=== PATIENT | male | born 1975 | race African-American/Black ===

== ENCOUNTER 2016-04-26 17:17 | Emergency (ER) | payer SELFPAY ==
--- NOTE | 2016-04-26 17:31 | ER Document Report ---
ED Medical Screen (RME) - General Stated Complaint: ABDOMINAL PAIN Mode of Arrival: Ambulatory Information source: Patient Notes: Patient complains of epigastric pain that started yesterday that radiates to his back. Patient denies any nausea or vomiting. Patient does complain of cough and shortness of breath. Patient states he took aspirin at home prior to arrival. Patient ran out of his blood pressure medication. hx: Hypertension, GERD I have greeted and performed a rapid initial assessment of this patient. A comprehensive ED assessment and evaluation of the patient, analysis of test results and completion of the medical decision making process will be conducted by additional ED providers. TRAVEL OUTSIDE OF THE [place] IN LAST 30 DAYS: No - Related Data Allergies/Adverse Reactions: hydrocodone bitartrate [From Vicodin] Allergy (Mild, Verified 04/26/16 17:30) Hives Past Medical History - Past Medical History Cardiac Medical History: Reports: Hx Hypertension Denies: Hx Coronary Artery Disease, Hx Heart Attack Pulmonary Medical History: Reports: Hx Asthma Denies: Hx Bronchitis, Hx COPD, Hx Pneumonia Neurological Medical History: Denies: Hx Cerebrovascular Accident, Hx Seizures Musculoskeltal Medical History: Denies Hx Arthritis - Immunizations Hx Diphtheria, Pertussis, Tetanus Vaccination: Yes Physical Exam - Abdominal Tenderness: Tender - Epigastric
[2016-04-26 18:41] LABS: ABSOLUTE EOSINOPHILS # (AUTO) 0.2 10^3/uL (0.0-0.6); ABSOLUTE LYMPHOCYTES (AUTO) 1.3 10^3/uL (0.5-4.7); ABSOLUTE MONOCYTES (AUTO) 0.4 10^3/uL (0.1-1.4); ABSOLUTE NEUT (AUTO) 2.4 10^3/uL (1.7-8.2); BASOPHILS % (AUTO) 1.1 % (0-2); EOSINOPHILS % (AUTO) 4.2 % (0-6); HEMATOCRIT 42.7 % (37.9-51.0); HEMOGLOBIN 14.2 g/dL (13.5-17.0); HGB HCT DIFFERENCE -0.1; LYMPHOCYTES % (AUTO) 30.2 % (13-45); MEAN CORPUSCULAR HEMOGLOBIN 29.6 pg (27.0-33.4); MEAN CORPUSCULAR HGB CONC 33.2 g/dL (32.0-36.0); MEAN CORPUSCULAR VOLUME 89 fl (80-97); MONOCYTES % (AUTO) 10.1 % (3-13); RED BLOOD COUNT 4.79 10^6/uL (4.35-5.55); RED CELL DISTRIBUTION WIDTH 12.5 % (11.5-14.0); SEGMENTED NEUTROPHILS % (AUTO) 54.4 % (42-78); WHITE BLOOD COUNT 4.4 10^3/uL (4.0-10.5)
--- NOTE | 2016-04-26 18:43 | EKG REPORT ---
SEVERITY:- ABNORMAL ECG - SINUS RHYTHM LVH WITH SECONDARY REPOLARIZATION ABNORMALITY : Confirmed by: Charleen Ortiz 26-Apr-2016 18:42:43
[2016-04-26 19:00] LABS: ALANINE AMINOTRANSFERASE 45 U/L (21-72); ALBUMIN 4.5 g/dL (3.5-5.0); ALKALINE PHOSPHATASE 81 U/L (38-126); ANION GAP 11 (5-19); ASPARTATE AMINO TRANSFERASE 19 U/L (17-59); BILIRUBIN,TOTAL 1.1 mg/dL (0.2-1.3); BLOOD UREA NITROGEN 13 mg/dL (7-20); CALCIUM 8.9 mg/dL (8.4-10.2); CARBON DIOXIDE 29 mmol/L (22-30); CHLORIDE 103 mmol/L (98-107); CREATINE KINASE 105 U/L (55-170); CREATININE RESULT 0.98 mg/dL (0.52-1.25); GLUCOSE 80 mg/dL (75-110); LIPASE 103.4 U/L (23-300); MAGNESIUM 1.7 mg/dL (1.6-2.3); POTASSIUM 3.8 mmol/L (3.6-5.0); SODIUM 142.8 mmol/L (137-145); TOTAL PROTEIN 6.8 g/dL (6.3-8.2)
[2016-04-26 19:12] LABS: CREATINE KINASE MB 0.27 ng/mL (<4.55)
[2016-04-26 19:14] LABS: TROPONIN I < 0.012 ng/mL
[2016-04-26 19:23] LABS: APPEARANCE,URINE CLEAR; BILIRUBIN,URINE NEGATIVE (NEGATIVE); GLUCOSE, URINE NEGATIVE (NEGATIVE); KETONES,URINE NEGATIVE (NEGATIVE); LEUKOCYTE ESTERASE,URINE NEGATIVE (NEGATIVE); NITRITE,URINE NEGATIVE (NEGATIVE); PROTEIN,URINE NEGATIVE (NEGATIVE); URINE SPECIFIC GRAVITY 1.018; UROBILINOGEN,URINE NEGATIVE mg/dL (<2.0)
[2016-04-26] MEDS ORDERED: KETOROLAC TROMETHAMINE INJ/PF 30 MG/1 ML SDV IM ONE (21:01)
--- NOTE | 2016-04-26 21:02 | ER Document Report ---
ED General - General Chief Complaint: Epigastric Pain Stated Complaint: ABDOMINAL PAIN Mode of Arrival: Ambulatory Notes: Patient is a 41-year-old male without past medical history, no prior surgical history who presents with 24 hours of epigastric abdominal pain. Does described as a dull, throbbing, aching pain. Nothing improves or worsens the pain. States that he is had anorexia but has not had any vomiting. States he had 2 diarrheal bowel movements today but has not passed any flatus. He has been able to tolerate sips of water but nothing more. No history of similar symptoms in the past. His symptoms of and unchanged since onset. He has not seen his primary care physician regarding today's concerns. TRAVEL OUTSIDE OF THE [place] IN LAST 30 DAYS: No - Related Data Allergies/Adverse Reactions: hydrocodone bitartrate [From Vicodin] Allergy (Mild, Verified 04/26/16 17:30) Hives Past Medical History - General Information source: Patient - Social History Smoking Status: Current Every Day Smoker Chew tobacco use (# tins/day): No Frequency of alcohol use: None Drug Abuse: None Lives with: Spouse/Significant other Family History: Reviewed & Not Pertinent Patient has suicidal ideation: No Patient has homicidal ideation: No - Past Medical History Cardiac Medical History: Reports: Hx Hypertension Denies: Hx Coronary Artery Disease, Hx Heart Attack Pulmonary Medical History: Reports: Hx Asthma Denies: Hx Bronchitis, Hx COPD, Hx Pneumonia Neurological Medical History: Denies: Hx Cerebrovascular Accident, Hx Seizures Renal/ Medical History: Denies: Hx Peritoneal Dialysis Musculoskeltal Medical History: Denies Hx Arthritis - Immunizations Hx Diphtheria, Pertussis, Tetanus Vaccination: Yes Review of Systems - Review of Systems Notes: Constitutional: Negative for fever. HENT: Negative for sore throat. Eyes: Negative for visual changes. Cardiovascular: Negative for chest pain. Respiratory: Negative for shortness of breath. Gastrointestinal: Positive for abdominal pain and diarrhea. Genitourinary: Negative for dysuria. Musculoskeletal: Negative for back pain. Skin: Negative for rash. Neurological: Negative for headaches, weakness or numbness. 10 point ROS negative except as marked above and in HPI. Physical Exam - Vital signs Vitals: Temp Pulse Resp BP Pulse Ox 98.7 F 82 16 170/118 H 98 04/26/16 17:30 04/26/16 17:30 04/26/16 17:30 04/26/16 17:30 04/26/16 17:30 Notes: PHYSICAL EXAMINATION: GENERAL: Well-appearing, well-nourished and in no acute distress. HEAD: Atraumatic, normocephalic. EYES: Pupils equal round and reactive to light, extraocular movements intact, sclera anicteric, conjunctiva are normal. ENT: nares patent, oropharynx clear without exudates. Moist mucous membranes. NECK: Normal range of motion, supple without lymphadenopathy LUNGS: Breath sounds clear to auscultation bilaterally and equal. No wheezes rales or rhonchi. HEART: Regular rate and rhythm without murmurs ABDOMEN: Soft, epigastric and right upper quadrant tenderness to palpation. Negative Martines sign., normoactive bowel sounds. No guarding, no rebound. No masses appreciated. EXTREMITIES: Normal range of motion, no pitting or edema. No cyanosis. NEUROLOGICAL: No focal neurological deficits. Moves all extremities spontaneously and on command. PSYCH: Normal mood, normal affect. SKIN: Warm, Dry, normal turgor, no rashes or lesions noted. Course - Re-evaluation Re-evalutation: 04/26/16 21:02 Patient presents with epigastric abdominal pain with associated reflux symptoms most consistent with likely gastritis. Patient has no focal abdominal tenderness on examination. Right upper quadrant ultrasound does not demonstrate any evidence of acute cholecystitis or cholelithiasis. Lipase is normal. No LFT changes. Based on history and exam, I do not suspect ACS, pulmonary embolus, SBO, mesenteric ischemia, acute pancreatitis, biliary pathology, or an abdominal aortic dissection. Patient has had improvement of symptoms here with a GI cocktail. At this time will discharge with return precautions and follow-up recommendations. Verbal discharge instructions given a the bedside and opportunity for questions given. Medication warnings reviewed. Patient is in agreement with this plan and has verbalized understanding of return precautions and the need for primary care follow-up in the next 24-72 hours. - Vital Signs Vital signs: Temp Pulse Resp BP Pulse Ox 97.8 F 78 16 171/122 H 97 04/27/16 00:20 04/27/16 00:20 04/27/16 00:20 04/27/16 00:20 04/27/16 00:20 - Laboratory Result Diagrams: 04/26/16 18:14 04/26/16 18:14 Laboratory results interpreted by me: 04/26/16 19:05 Urine Blood SMALL H - Diagnostic Test Radiology reviewed: Reports reviewed - EKG Interpretation by Me Additional EKG results interpreted by me: 04/27/16 04:00 Normal sinus rhythm. Rate 75. No ST elevations or depressions. LVH. QTC is 420. Discharge - Discharge Clinical Impression: Epigastric abdominal pain, Essential hypertension Condition: Good Disposition: HOME, SELF-CARE Additional Instructions: You have been seen in the Emergency Department (ED) for abdominal pain. Your evaluation did not identify a clear cause of your symptoms but was generally reassuring. Start taking famotidine which can purchase [id number]. Take 40 mg in the morning and 40 mg at night Please follow up with your doctor as soon as possible regarding today's emergent visit and the symptoms that are bothering you. Return to the ED if your abdominal pain worsens or fails to improve, you develop bloody vomiting, bloody diarrhea, you are unable to tolerate fluids due to vomiting, fever greater than 101, or other symptoms that concern you. Prescriptions: Lisinopril/Hydrochlorothiazide [Lisinopril-Hctz 20-25 mg Tab] 1 each PO DAILY # 30 tablet
[2016-04-26] MEDS ORDERED: MAG HYDROX/AL HYDROX/SIMETH SUSP 30 ML UDCUP PO ONE (23:20)
[2016-04-26] MEDS ORDERED: LIDOCAINE 2% VISCOUS SOLN 20 ML UDCUP PO ONE (23:20)
[2016-04-26] MEDS ORDERED: METOCLOPRAMIDE HCL ORAL SOLN 10 MG/10 ML UDCUP PO ONE (23:20)
[2016-04-27] MEDS ORDERED: LISINOPRIL 10 MG TABLET PO ONE (00:29)
[2016-04-27 00:33] VITALS: BP 171/122
== END 2016-04-27 00:30 | disposition home or self-care (01) ==
LOC: ER 17:17
DX: R10.13 Epigastric pain (principal); I10 Essential (primary) hypertension; F17.200 Nicotine dependence, unspecified, uncomplicated; Z88.6 Allergy status to analgesic agent
CPT/HCPCS: 93005; 99284; 96372; 36415; 82553; 82550; 83690; 83735; 85025; 80053; 81001; 84484; 71020; 74000; 76705; 93010; J1885

== ENCOUNTER 2018-04-08 11:13 | Emergency (ER) | payer SELFPAY ==
[2018-04-08] MEDS ORDERED: ACETAMINOPHEN 325 MG TABLET PO ONE (11:41)
[2018-04-08] MEDS ORDERED: LISINOPRIL 10 MG TABLET PO ONE (11:41)
[2018-04-08] MEDS ORDERED: HYDROCHLOROTHIAZIDE 25 MG TABLET PO ONE (11:41)
[2018-04-08 11:42] VITALS: BP 177/123
--- NOTE | 2018-04-08 11:56 | ER Document Report ---
HPI - HPI Time Seen by Provider: 04/08/18 11:33 Pain Level: 4 Notes: Patient is a 43-year-old male who presents to the ED complaining of nasal congestion/discharge, dry nonproductive cough, fever, body ache 2 days. Patient states that He is still eating and drinking without difficulties, but does have a decreased p.o. intake. He is still urinating normally having normal bowel movements. Patient has been using some [id number] meds for symptoms. He denies any significant past medical history including cardiopulmonary history and immunocompromised conditions aside from asthma. Patient denies any smoking or IV drug use. Patient requesting work note. D enies any current headache, neck pain, sore throat, chest pain, palpitations, syncope, shortness of breath, wheeze, dyspnea, abdominal pain, nausea/vomiting/diarrhea, urinary retention, dysuria, hematuria, or rash. - ROS Systems Reviewed and Negative: Yes All other systems reviewed and negative - CONSTITUTIONAL Constitutional: REPORTS: Fever, Chills - EENT EENT: REPORTS: Sore Throat - CARDIOVASCULAR Cardiovascular: REPORTS: Chest pain - RESPIRATORY Respiratory: REPORTS: Coughing Past Medical History - Social History Smoking Status: Never Smoker Chew tobacco use (# tins/day): No Frequency of alcohol use: None Drug Abuse: None Family History: Reviewed & Not Pertinent Patient has suicidal ideation: No Patient has homicidal ideation: No - Past Medical History Cardiac Medical History: Reports: Hx Hypertension Denies: Hx Coronary Artery Disease, Hx Heart Attack Pulmonary Medical History: Reports: Hx Asthma Denies: Hx Bronchitis, Hx COPD, Hx Pneumonia Neurological Medical History: Denies: Hx Cerebrovascular Accident, Hx Seizures Renal/ Medical History: Denies: Hx Peritoneal Dialysis Musculoskeletal Medical History: Denies Hx Arthritis Past Surgical History: Reports: Hx Oral Surgery - [place] teeth - Immunizations Hx Diphtheria, Pertussis, Tetanus Vaccination: Yes Vertical Provider Document - CONSTITUTIONAL Agree With Documented VS: Yes Notes: PHYSICAL EXAMINATION: GENERAL: Well-appearing, well-nourished and in no acute distress. A&Ox4. Answers questions appropriately. Moves comfortably w/o notable distress HEAD: Atraumatic, normocephalic. EYES: Pupils equal round and reactive to light, extraocular movements intact, sclera anicteric, conjunctiva are normal. ENT: EAC clear b/l. TM's intact b/l without erythema, fluid, or perforation. Nares patent and with clear discharge. oropharynx no erythema without exudates. No tonsilar hypertrophy without erythema or exudate. No palatine shift. Uvula midline. No tongue protrusion. No drooling, hoarseness, or airway compromise. Moist mucous membranes. No sinus tenderness. NECK: Normal range of motion, supple without lymphadenopathy. No rigidity/meningismus. LUNGS: Breath sounds clear to auscultation bilaterally and equal. No wheezes rales or rhonchi. No retractions HEART: Regular rate and rhythm without murmurs, rubs, gallops. ABDOMEN: Soft, nontender, nondistended abdomen. No guarding, no rebound. No masses appreciated. Normal bowel sounds present. No CVA tenderness bilaterally. No hepatosplenomegaly. NEUROLOGICAL: Normal speech, normal gait. Normal sensory, motor exams PSYCH: Normal mood, normal affect. SKIN: Warm, Dry, normal turgor, no rashes or lesions noted. - INFECTION CONTROL TRAVEL OUTSIDE OF THE [place] IN LAST 30 DAYS: No Course - Re-evaluation Re-evalutation: 04/08/18 11:57 Patient is an afebrile, well-hydrated, 43-year-old male who presents to the ED with acute URI, suspect influenza. Vitals are acceptable. PE is otherwise unremarkable. No labs or imaging warranted at this time based on H&P. Patient has no significant cardiopulmonary or immunocompromised medical conditions aside from asthma. Patient's lungs are clear to auscultation bilaterally without tachycardia, hypoxia, or tachypnea. Patient is tolerating p.o. without any difficulties. Thoroughly reviewed the risks, benefits, potential side effects, estimated cost without insurance with patient. After thorough review, patient declined Tamiflu at this time. Low suspicion for any meningitis, sepsis, peritonsillar/pharyngeal abscess, respiratory compromise, severe dehydration, or other emergent systemic condition at this time. Patient is aware this condition can change from initial presentation and he needs to monitor symptoms closely. I will send him home with a prescription for an inhaler. Patient was given his blood pressure medicine since he did not take it today and he was given tylenol. Conservative measures otherwise for symptoms. Recheck with your PCM in 3-5 days. Return to the ED with any worsening/concerning symptoms otherwise as reviewed in discharge. Patient is in agreement. - Vital Signs Vital signs: Temp Pulse Resp BP Pulse Ox 100.8 F H 101 H 20 177/123 H 96 04/08/18 11:41 04/08/18 11:41 04/08/18 11:41 04/08/18 11:41 04/08/18 11:41 Discharge - Discharge Clinical Impression: Acute URI Condition: Stable Disposition: HOME, SELF-CARE Additional Instructions: Maintain adequate fluid intake Take meds as directed tylenol/ibuprofen as needed over the counter cold medication as needed for symptoms Humidified air may help Wash your hands regularly Wear a mask when coughing F/u: with your PCM in 3-5 days for a recheck Return to the ED with any fever, worsening pain, chest pain, palpitations, syncope, worsening KOCH, neck pain/stiffness, shortness of breath, wheezing, drooling, trouble swallowing/breathing, abdominal pain, n/v/d, rash, or worsening/concerning symptoms otherwise. Forms: Elevated Blood Pressure Referrals: [facility] / [facility] [Provider Group] - Follow up as needed
[2018-04-08] MEDS ORDERED: ALBUTEROL SULFATE HFA (90 MCG/PUFF) 8 GM MDI (1 MDI/ER DISP) IH ONE (11:58)
== END 2018-04-08 12:26 | disposition home or self-care (01) ==
LOC: ER 11:13
DX: R09.81 Nasal congestion (principal); J06.9 Acute upper respiratory infection, unspecified; R05 Cough; R50.9 Fever, unspecified; R07.9 Chest pain, unspecified; J02.9 Acute pharyngitis, unspecified; J45.909 Unspecified asthma, uncomplicated; I10 Essential (primary) hypertension
CPT/HCPCS: 99283; J3490

== ENCOUNTER 2018-09-04 12:32 | Emergency (ER) | payer OTHER ==
[2018-09-04] MEDS ORDERED: DEXAMETHASONE SOD PHOS INJ 10 MG/1 ML VIAL IM ONE (14:43)
[2018-09-04] MEDS ORDERED: LIDOCAINE 5% (700 MG) TRANSDERMAL ADH..PATCH TP ONE (14:43)
[2018-09-04] MEDS ORDERED: KETOROLAC TROMETHAMINE 60 MG/2 ML SDV IM ONE (14:43)
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
[2018-09-04 16:40] VITALS: BP 190/92
== END 2018-09-04 16:40 | disposition home or self-care (01) ==
LOC: ER 12:32
DX: M51.36 Other intervertebral disc degeneration, lumbar region (principal); M54.9 Dorsalgia, unspecified; G89.29 Other chronic pain; M54.5 Low back pain; M79.605 Pain in left leg; V87.7XXA Person injured in collision between other specified motor vehicles (traffic), initial encounter; F17.210 Nicotine dependence, cigarettes, uncomplicated; I10 Essential (primary) hypertension; J45.909 Unspecified asthma, uncomplicated
CPT/HCPCS: 99406; 99283; 96372; 72110; 72070; J1885; J1100

== ENCOUNTER 2018-10-15 19:02 | Emergency (ER) | payer OTHER ==
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
[2018-10-15 21:07] LABS: ABSOLUTE EOSINOPHILS # (AUTO) 0.3 10^3/uL (0.0-0.6); ABSOLUTE LYMPHOCYTES (AUTO) 2.1 10^3/uL (0.5-4.7); ABSOLUTE MONOCYTES (AUTO) 0.7 10^3/uL (0.1-1.4); ABSOLUTE NEUT (AUTO) 4.8 10^3/uL (1.7-8.2); BASOPHILS % (AUTO) 0.5 % (0-2); EOSINOPHILS % (AUTO) 3.3 % (0-6); HEMATOCRIT 38.5 % (37.9-51.0); HEMOGLOBIN 12.7 g/dL (13.5-17.0); LYMPHOCYTES % (AUTO) 26.7 % (13-45); MEAN CORPUSCULAR HEMOGLOBIN 29.3 pg (27.0-33.4); MEAN CORPUSCULAR HGB CONC 32.9 g/dL (32.0-36.0); MEAN CORPUSCULAR VOLUME 89 fl (80-97); MONOCYTES % (AUTO) 8.8 % (3-13); PLATELET COUNT 342 10^3/uL (150-450); RED BLOOD COUNT 4.33 10^6/uL (4.35-5.55); RED CELL DISTRIBUTION WIDTH 13.2 % (11.5-14.0); SEGMENTED NEUTROPHILS % (AUTO) 60.7 % (42-78); TOTAL CELLS COUNTED % (AUTO) 100 %; WHITE BLOOD COUNT 7.9 10^3/uL (4.0-10.5)
[2018-10-15 21:16] LABS: APPEARANCE,URINE CLEAR; BILIRUBIN,URINE NEGATIVE (NEGATIVE); COLOR,URINE YELLOW; GLUCOSE, URINE NEGATIVE (NEGATIVE); KETONES,URINE NEGATIVE (NEGATIVE); LEUKOCYTE ESTERASE,URINE NEGATIVE (NEGATIVE); NITRITE,URINE NEGATIVE (NEGATIVE); PROTEIN,URINE NEGATIVE (NEGATIVE); URINE SPECIFIC GRAVITY 1.023; UROBILINOGEN,URINE NEGATIVE mg/dL (<2.0)
[2018-10-15 21:23] LABS: ALBUMIN 4.5 g/dL (3.5-5.0); ALKALINE PHOSPHATASE 100 U/L (38-126); ANION GAP 14 (5-19); ASPARTATE AMINO TRANSFERASE 40 U/L (17-59); BILIRUBIN,DIRECT 0.3 mg/dL (0.0-0.4); BILIRUBIN,TOTAL 0.6 mg/dL (0.2-1.3); BLOOD UREA NITROGEN 21 mg/dL (7-20); CALCIUM 9.6 mg/dL (8.4-10.2); CARBON DIOXIDE 30 mmol/L (22-30); CHLORIDE 98 mmol/L (98-107); GLUCOSE 141 mg/dL (75-110); POTASSIUM 3.5 mmol/L (3.6-5.0); TOTAL PROTEIN 7.3 g/dL (6.3-8.2)
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
[2018-10-15] MEDS ORDERED: FUROSEMIDE 20 MG TABLET PO ONE (23:35)
[2018-10-15] MEDS ORDERED: IPRATROPIUM/ALBUTEROL 0.5-2.5 MG/3 ML AMPUL NEB ONE (23:35)
[2018-10-15] MEDS ORDERED: ASPIRIN 81 MG TABLET, CHEWABLE PO ONE (23:41)
--- NOTE | 2018-10-15 23:41 | ER Document Report ---
ED General - General Chief Complaint: Cough Stated Complaint: COUGH Time Seen by Provider: 10/15/18 20:19 [facility] [NO LOCAL MD] - Follow up in 3-5 days LOCALLETY HERNANDEZ [Primary Care Provider] - Follow up as needed Mode of Arrival: Ambulatory Information source: Patient, [facility] Records Notes: 43-year-old male with hypertension presents with complaint of cough and shortness of breath. Patient reports a productive cough that started 2 weeks prior to arrival. He reports the sputum being green, brown. He has had associated subjective fever and chills. Patient reports that his shortness of breath started 1 week ago. He reports that it is worse with exertion, laying flat. Denies previous history of congestive heart failure, lower extremity edema. Patient also complaining of right upper chest pain that started 5 days prior to arrival. He describes it as a sharp pain that is only present with coughing. He denies any associated diaphoresis, nausea, radiation of pain, sick contacts. Patient reports quitting smoking approximately 1 month ago. TRAVEL OUTSIDE OF THE [place] IN LAST 30 DAYS: No - HPI Onset: Other Onset/Duration: Gradual, Persistent, Waxing and waning, Worse Quality of pain: Sharp Severity: Moderate Pain Level: 2 Associated symptoms: Body/muscle aches, Chest pain, Productive cough, Fever, Nausea, Shortness of breath. denies: Leg swelling, Vomiting Exacerbated by: Supine, Walking, Coughing Similar symptoms previously: No Recently seen / treated by doctor: No - Related Data Allergies/Adverse Reactions: hydrocodone bitartrate [From Vicodin] Allergy (Mild, Verified 10/15/18 19:05) Hives Past Medical History - General Information source: Patient - Social History Smoking Status: Former Smoker Frequency of alcohol use: Occasional Drug Abuse: None Lives with: Family Family History: Reviewed & Not Pertinent Patient has suicidal ideation: No Patient has homicidal ideation: No - Past Medical History Cardiac Medical History: Reports: Hx Hypertension Denies: Hx Coronary Artery Disease, Hx Heart Attack Pulmonary Medical History: Reports: Hx Asthma Denies: Hx Bronchitis, Hx COPD, Hx Pneumonia Neurological Medical History: Denies: Hx Cerebrovascular Accident, Hx Seizures Renal/ Medical History: Denies: Hx Peritoneal Dialysis Musculoskeletal Medical History: Denies Hx Arthritis, Reports Hx Musculoskeletal Deformity, Reports Hx Musculoskeletal Trauma Past Surgical History: Reports: Hx Oral Surgery - [place] teeth - Immunizations Hx Diphtheria, Pertussis, Tetanus Vaccination: Yes Review of Systems - Review of Systems Notes: REVIEW OF SYSTEMS: CONSTITUTIONAL : + fever, chills, or sweats. Denies recent illness. Denies weight loss, recent hospitalizations. EENT: Denies visual changes, eye pain. Denies sore throat, oral lesions, difficulty swallowing. CARDIOVASCULAR: + chest pain. Denies palpitations. Denies lower extremity edema. RESPIRATORY: + cough. +shortness of breath, denies wheezing. GASTROINTESTINAL: Denies abdominal pain or distention. Denies nausea, vomiting, or diarrhea. Denies blood in vomitus, stools, or per rectum. Denies black, tarry stools. Denies constipation. GENITOURINARY: Denies difficulty urinating, painful urination, frequency, blood in urine, testicular pain or penile discharge. MUSCULOSKELETAL: Denies back or neck pain or stiffness. Denies joint pain or swelling. SKIN: Denies rash, lesions or sores. HEMATOLOGIC : Denies easy bruising or bleeding. LYMPHATIC: Denies swollen glands. NEUROLOGICAL: Denies confusion or altered mental status. Denies loss of consciousness. Denies dizziness or lightheadedness. Denies headache. Denies weakness or paralysis. Denies problems difficulty with ambulation, slurred speech. Denies sensory loss, numbness, or tingling. Denies seizures. PSYCHIATRIC: Denies anxiety or stress. Denies depression, suicidal ideation, Physical Exam - Vital signs Vitals: Temp Pulse Resp BP Pulse Ox 98.2 F 94 16 137/86 H 92 10/15/18 19:11 10/15/18 19:11 10/15/18 19:11 10/15/18 19:11 10/15/18 19:11 - Notes Notes: PHYSICAL EXAMINATION: GENERAL: Well-appearing, well-nourished and in no acute distress. HEAD: Atraumatic, normocephalic. EYES: Pupils equal round and reactive to light, extraocular movements intact, sclera anicteric, conjunctiva are normal. ENT: Nares patent, oropharynx clear without exudates. Moist mucous membranes. NECK: Normal range of motion, supple without lymphadenopathy LUNGS: Breath sounds clear to auscultation bilaterally and equal. No wheezes rales or rhonchi. No increased work of breathing, accessory muscle use, hypoxia. HEART: Regular rate and rhythm without murmurs. Pulses equal throughout. ABDOMEN: Soft, nontender, nondistended abdomen. No guarding, no rebound. No masses appreciated. Musculoskeletal: Normal range of motion, no pitting or edema. No cyanosis. NEUROLOGICAL: Cranial nerves grossly intact. Normal speech, normal gait. Normal sensory, motor exams PSYCH: Normal mood, normal affect. SKIN: Warm, Dry, normal turgor, no rashes or lesions noted. Course - Re-evaluation Re-evalutation: 10/17/18 04:49 Microbiology 10/15/18 20:43 Blood Culture - Preliminary Blood NO GROWTH IN 24 HOURS 10/15/18 20:30 Blood Culture - Preliminary Blood NO GROWTH IN 24 HOURS Laboratory 10/15/18 10/15/18 10/15/18 20:30 20:30 20:30 WBC 7.9 RBC 4.33 L Hgb 12.7 L Hct 38.5 MCV 89 MCH 29.3 MCHC 32.9 RDW 13.2 Plt Count 342 Seg Neutrophils % 60.7 Lymphocytes % 26.7 Monocytes % 8.8 Eosinophils % 3.3 Basophils % 0.5 Absolute Neutrophils 4.8 Absolute Lymphocytes 2.1 Absolute Monocytes 0.7 Absolute Eosinophils 0.3 Absolute Basophils 0.0 D-Dimer Sodium 141.7 Potassium 3.5 L Chloride 98 Carbon Dioxide 30 Anion Gap 14 BUN 21 H Creatinine 1.26 H Est GFR ( Amer) > 60 Est GFR (Non-Af Amer) > 60 Glucose 141 H Calcium 9.6 Total Bilirubin 0.6 Direct Bilirubin 0.3 Neonat Total Bilirubin Not Reportable Neonat Direct Bilirubin Not Reportable Neonat Indirect Bili Not Reportable AST 40 ALT 48 Alkaline Phosphatase 100 Troponin I 0.022 NT-Pro-B Natriuret Pep Total Protein 7.3 Albumin 4.5 Urine Color Urine Appearance Urine pH Ur Specific [place] Urine Protein Urine Glucose (UA) Urine Ketones Urine Blood Urine Nitrite Urine Bilirubin Urine Urobilinogen Ur Leukocyte Esterase Urine WBC (Auto) Urine RBC (Auto) U Hyaline Cast (Auto) Urine Bacteria (Auto) Urine Mucus (Auto) Urine Ascorbic Acid 10/15/18 10/15/18 10/15/18 20:30 20:30 23:29 WBC RBC Hgb Hct MCV MCH MCHC RDW Plt Count Seg Neutrophils % Lymphocytes % Monocytes % Eosinophils % Basophils % Absolute Neutrophils Absolute Lymphocytes Absolute Monocytes Absolute Eosinophils Absolute Basophils D-Dimer 0.27 Sodium Potassium Chloride Carbon Dioxide Anion Gap BUN Creatinine Est GFR ( Amer) Est GFR (Non-Af Amer) Glucose Calcium Total Bilirubin Direct Bilirubin Neonat Total Bilirubin Neonat Direct Bilirubin Neonat Indirect Bili AST ALT Alkaline Phosphatase Troponin I NT-Pro-B Natriuret Pep 30 Total Protein Albumin Urine Color YELLOW Urine Appearance CLEAR Urine pH 5.0 Ur Specific [place] 1.023 Urine Protein NEGATIVE Urine Glucose (UA) NEGATIVE Urine Ketones NEGATIVE Urine Blood NEGATIVE Urine Nitrite NEGATIVE Urine Bilirubin NEGATIVE Urine Urobilinogen NEGATIVE Ur Leukocyte Esterase NEGATIVE Urine WBC (Auto) 1 Urine RBC (Auto) 1 U Hyaline Cast (Auto) 1 Urine Bacteria (Auto) TRACE Urine Mucus (Auto) MANY Urine Ascorbic Acid 20 H 10/16/18 00:28 WBC RBC Hgb Hct MCV MCH MCHC RDW Plt Count Seg Neutrophils % Lymphocytes % Monocytes % Eosinophils % Basophils % Absolute Neutrophils Absolute Lymphocytes Absolute Monocytes Absolute Eosinophils Absolute Basophils D-Dimer Sodium Potassium Chloride Carbon Dioxide Anion Gap BUN Creatinine Est GFR ( Amer) Est GFR (Non-Af Amer) Glucose Calcium Total Bilirubin Direct Bilirubin Neonat Total Bilirubin Neonat Direct Bilirubin Neonat Indirect Bili AST ALT Alkaline Phosphatase Troponin I 0.016 NT-Pro-B Natriuret Pep Total Protein Albumin Urine Color Urine Appearance Urine pH Ur Specific [place] Urine Protein Urine Glucose (UA) Urine Ketones Urine Blood Urine Nitrite Urine Bilirubin Urine Urobilinogen Ur Leukocyte Esterase Urine WBC (Auto) Urine RBC (Auto) U Hyaline Cast (Auto) Urine Bacteria (Auto) Urine Mucus (Auto) Urine Ascorbic Acid Chest X-Ray 10/15/18 20:20 IMPRESSION: Mild pulmonary edema. Chest CT 10/16/18 01:02 IMPRESSION: Nodular infiltrate in the left lower lobe suggesting pneumonitis or sequela of old infection Numerous noncalcified pulmonary nodules which appears stable when compared to the examination from 2013 The subpleural nodule in the left chest measuring 6 mm on image 24. This could be followed in 12 months if indicated Fatty liver Temp Pulse Resp BP Pulse Ox 97.9 F 94 16 130/81 H 97 10/16/18 02:50 10/15/18 19:11 10/15/18 19:11 10/16/18 01:01 10/16/18 02:00 10/17/18 04:49 43-year-old male with hypertension presents with complaint of cough and shortness of breath. Patient reports a productive cough that started 2 weeks prior to arrival. He reports the sputum being green, brown. He has had associated subjective fever and chills. Patient reports that his shortness of breath started 1 week ago. Vital signs reviewed and within normal limits. Patient is afebrile, normotensive and not hypoxic. Patient does not appear toxic or dehydrated. He is in no acute distress. Previous medical records and nursing notes were obtained. Patient did receive breathing treatments during his ED course and does report improvement of his cough and shortness of breath. Chest x-ray was obtained and showed mild pulmonary edema. Bedside ultrasound was performed and without pericardial effusion, B-lines. CT of the chest was obtained and concerning for pneumonitis versus infection. Because of the patient's reports of productive cough and fever he will be treated for pneumonia with doxycycline. CBC was without leukocytosis or anemia. CMP showed mild hyperglycemia without evidence of DKA. Cardiac enzymes are within normal limits and d-dimer is also within normal limits. Discussed incidental finding of subpleural nodule and the need for follow-up in 12 months. Patient does express understanding. Patient was evaluated and treated as appropriate for the patient's presenting symptoms and complaint, with consideration of any critical or life threatening conditions that may be associated with their obtained history and exam as noted above. All results were discussed with patient. Patient provided the opportunity to ask questions, and express concerns. Patient was educated on treatments based on their presumed diagnosis as noted above. At this time we will discharge the patient with return precautions and follow-up recommendations. Verbal discharge instructions given a the bedside. Medication warnings reviewed. Patient is in agreement with this plan and has verbalized understanding of return precautions. After careful consideration I feel that that patient can be safely discharged from the emergency department, they were advised to followup with a primary ca re physician in 2-3 days. Dictation on this chart was performed using voice recognition software and may result in unintended grammatical, spelling, syntax or errors. - Vital Signs Vital signs: Temp Pulse Resp BP Pulse Ox 97.9 F 94 16 130/81 H 97 10/16/18 02:50 10/15/18 19:11 10/15/18 19:11 10/16/18 01:01 10/16/18 02:00 - Laboratory Result Diagrams: 10/15/18 20:30 10/15/18 20:30 Laboratory results interpreted by me: 10/15/18 10/15/18 10/15/18 20:30 20:30 20:30 RBC 4.33 L Hgb 12.7 L Potassium 3.5 L BUN 21 H Creatinine 1.26 H Glucose 141 H Urine Ascorbic Acid 20 H - Diagnostic Test Radiology reviewed: Image reviewed, Reports reviewed - EKG Interpretation by Me EKG shows normal: Sinus rhythm Rate: Normal Rhythm: NSR Voltage: Consistant with LVH Discharge - Discharge Clinical Impression: JOSE RAMON (acute kidney injury) Pneumonia Qualifiers: Pneumonia type: due to unspecified organism Laterality: unspecified laterality Lung location: unspecified part of lung Qualified Code(s): J18.9 - Pneumonia, unspecified organism Chest pain Qualifiers: Chest pain type: unspecified Qualified Code(s): R07.9 - Chest pain, unspecified Condition: Good Disposition: HOME, SELF-CARE Instructions: Chest Wall Pain ([facility]), Pneumonia ([facility]) Additional Instructions: You have been diagnosed with a pneumonia. It is very important that you take all of your antibiotics until they are gone even if you are feeling better. Please return to the emergency department immediately if you began having wor sening shortness of breath, become confused, have worsening pain, pass out, have persistent vomiting that prevents you from being able to drink fluids for more than 12 hours, or have any other symptoms that are worrisome to you. Please follow-up with your primary care doctor in the next 1-2 days. You were seen today for chest pain. The exact cause of your pain is unclear. However, based on your cardiac enzyme testing, chest x-ray, and EKG it does not appear that it is from an immediately life-threatening cause at this time. Although your testing here is normal is critical that you follow-up with your primary care physician for continued evaluation of this chest pain and possible stress testing. I recommended you see your physician within the next 24-48 hours to be evaluated for consideration of a stress test. Please return to emergency department immediately if you have worsening of your chest pain, shortness of breath, vomiting, become unable to exert yourself due to pain or difficulty breathing, you pass out, or have any pain that radiates into your arms, jaw, or back. Please also return if you have any additional symptoms that are concerning to you. Prescriptions: Doxycycline Hyclate 100 mg PO BID #14 capsule Forms: Elevated Blood Pressure, Smoking Cessation Education Referrals: [facility],NO [Primary Care Provider] - Follow up as needed [facility] [NO [facility]] - Follow up in 3-5 days
--- NOTE | 2018-10-16 01:50 | RADIOLOGY REPORT (SQ) ---
EXAM DESCRIPTION: CT CHEST WITHOUT IV CONTRAST COMPLETED DATE/TME: 10/16/2018 01:02 CLINICAL HISTORY: 43 years Male ? edema COMPARISON: 10/04/2012. TECHNIQUE: Contiguous axial images obtained through the chest without IV contrast. Reformatted images obtained. This exam was performed according to our department optimization program which includes automated exposure control, adjustment of the mA and/or kv according to patient size and/or use of iterative reconstruction technique. FINDINGS: No significant mediastinal or hilar adenopathy is noted. No pericardial or pleural effusion. Fatty infiltration the liver. Unenhanced aorta is normal in caliber. No significant hilar or mediastinal lymph nodes. There is nodular infiltrate in the right lower lobe which may reflect pneumonitis. There is an elliptical nodular density along the fissure on series 3 image 29 in the right which is unchanged. Small subpleural nodule is present in the lateral aspect of the left chest also likely intrafissural lymph node. This measures 5 to 6 mm. Nodular foci in the right upper lobe on image 15 and 12 which were also present on the prior examination. Small subpleural nodule in the anterior right lobe on image 30 also present on the previous study. No consolidating infiltrates or pleural effusions. IMPRESSION: Nodular infiltrate in the left lower lobe suggesting pneumonitis or sequela of old infection Numerous noncalcified pulmonary nodules which appears stable when compared to the examination from 2013 The subpleural nodule in the left chest measuring 6 mm on image 24. This could be followed in 12 months if indicated Fatty liver
[2018-10-16] MEDS ORDERED: KETOROLAC TROMETHAMINE INJ/PF 30 MG/1 ML SDV IV ONE (02:27)
[2018-10-16] MEDS ORDERED: DOXYCYCLINE HYCLATE 100 MG TABLET PO ONE (02:28)
[2018-10-16] MEDS ORDERED: ALBUTEROL SULFATE HFA (90 MCG/PUFF) 8 GM MDI (1 MDI/ER DISP) IH PRN (02:31)
[2018-10-16 02:36] VITALS: BP 130/81
--- NOTE | 2018-10-16 09:35 | EKG REPORT ---
SEVERITY:- ABNORMAL ECG - SINUS RHYTHM LVH WITH SECONDARY REPOLARIZATION ABNORMALITY : Confirmed by: Reece Davis MD 16-Oct-2018 09:34:05
== END 2018-10-16 02:50 | disposition home or self-care (01) ==
LOC: ER 19:02
DX: N17.9 Acute kidney failure, unspecified (principal); J18.9 Pneumonia, unspecified organism; R07.9 Chest pain, unspecified; R06.02 Shortness of breath; M79.10 Myalgia, unspecified site
CPT/HCPCS: 93005; 36415; 87040; 85025; 80053; 81001; 84484; 85379; 83880; 71046; 71250; 93010; J1885; J3490; J7620; 94640; 96374; 99284

== ENCOUNTER 2019-09-19 11:53 | Inpatient (IN) | payer SELFPAY ==
[2019-09-19] MEDS ORDERED: NORMAL SALINE 1000 ML 1,000 ML IV ONE ×2 (12:30→15:12)
--- NOTE | 2019-09-19 12:33 | ER Document Report ---
ED Medical Screen (RME) - General Chief Complaint: Blurred Vision Stated Complaint: BLURRY VISION, BP ISSUES Time Seen by Provider: 09/19/19 12:25 Notes: Patient is a 44-year-old male who presents emergency department with a chief complaint of "not feeling himself." Patient reports over the past month he has had blurred vision, occasional headaches, increased thirst and urinary frequency. Patient reports he does have a history of high blood pressure but does not currently take any medications. Patient reports he does not have a history of diabetes but did check his blood sugar at home and noted that it was elevated. TRAVEL OUTSIDE OF THE [place] IN LAST 30 DAYS: No - Related Data Allergies/Adverse Reactions: hydrocodone bitartrate [From Vicodin] Allergy (Mild, Verified 09/19/19 12:25) Hives Past Medical History - Social History Chew tobacco use (# tins/day): No Frequency of alcohol use: Occasional Drug Abuse: Marijuana - Past Medical History Cardiac Medical History: Reports: Hx Hypertension Denies: Hx Coronary Artery Disease, Hx Heart Attack Pulmonary Medical History: Reports: Hx Asthma Denies: Hx Bronchitis, Hx COPD, Hx Pneumonia Neurological Medical History: Denies: Hx Cerebrovascular Accident, Hx Seizures Renal/ Medical History: Denies: Hx Peritoneal Dialysis Musculoskeltal Medical History: Denies Hx Arthritis, Reports Hx Musculoskeletal Deformity, Reports Hx Musculoskeletal Trauma Past Surgical History: Reports: Hx Oral Surgery - [place] teeth - Immunizations Hx Diphtheria, Pertussis, Tetanus Vaccination: Yes Physical Exam - Vital signs Vitals: Temp Pulse Resp BP Pulse Ox 98.9 F 92 18 199/141 H 92 09/19/19 11:58 09/19/19 11:58 09/19/19 11:58 09/19/19 11:58 09/19/19 11:58 - Respiratory Respiratory status: No respiratory distress Chest status: Nontender Breath sounds: Normal Chest palpation: Normal - Cardiovascular Rhythm: Regular Heart sounds: Normal auscultation, S1 appreciated, S2 appreciated Course - Re-evaluation Re-evalutation: 09/19/19 12:32 I have greeted and performed a rapid initial assessment of this patient. A comprehensive ED assessment and evaluation of the patient, analysis of test results and completion of the medical decision making process will be conducted by additional ED providers. Blood pressure was noted to be 199/141 in triage. Patient is mentating appropriately. Will obtain basic labs. - Vital Signs Vital signs: Temp Pulse Resp BP Pulse Ox 98.9 F 92 18 199/141 H 92 09/19/19 11:58 09/19/19 11:58 09/19/19 11:58 09/19/19 11:58 09/19/19 11:58 - Laboratory Laboratory results interpreted by me: 09/19/19 12:01 POC Glucose > 550 H*
[2019-09-19 12:53] LABS: ABSOLUTE EOSINOPHILS # (AUTO) 0.2 10^3/uL (0.0-0.6); ABSOLUTE LYMPHOCYTES (AUTO) 1.3 10^3/uL (0.5-4.7); ABSOLUTE MONOCYTES (AUTO) 0.4 10^3/uL (0.1-1.4); ABSOLUTE NEUT (AUTO) 3.6 10^3/uL (1.7-8.2); BASOPHILS % (AUTO) 0.8 % (0-2); EOSINOPHILS % (AUTO) 4.1 % (0-6); HEMOGLOBIN 14.5 g/dL (13.5-17.0); LYMPHOCYTES % (AUTO) 23.1 % (13-45); MEAN CORPUSCULAR HEMOGLOBIN 29.2 pg (27.0-33.4); MEAN CORPUSCULAR VOLUME 89 fl (80-97); MONOCYTES % (AUTO) 7.6 % (3-13); PLATELET COUNT 173 10^3/uL (150-450); RED BLOOD COUNT 4.98 10^6/uL (4.35-5.55); RED CELL DISTRIBUTION WIDTH 13.1 % (11.5-14.0); SEGMENTED NEUTROPHILS % (AUTO) 64.4 % (42-78); TOTAL CELLS COUNTED % (AUTO) 100 %; WHITE BLOOD COUNT 5.6 10^3/uL (4.0-10.5)
[2019-09-19 12:58] LABS: APPEARANCE,URINE CLEAR; BILIRUBIN,URINE NEGATIVE (NEGATIVE); COLOR,URINE STRAW; GLUCOSE, URINE >=500 mg/dL (NEGATIVE); KETONES,URINE NEGATIVE (NEGATIVE); LEUKOCYTE ESTERASE,URINE NEGATIVE (NEGATIVE); NITRITE,URINE NEGATIVE (NEGATIVE); PROTEIN,URINE NEGATIVE (NEGATIVE); URINE SPECIFIC GRAVITY 1.032; UROBILINOGEN,URINE NEGATIVE mg/dL (<2.0)
[2019-09-19 13:12] LABS: ALKALINE PHOSPHATASE 153 U/L (38-126); ANION GAP 6 (5-19); ASPARTATE AMINO TRANSFERASE 46 U/L (17-59); BILIRUBIN,TOTAL 0.8 mg/dL (0.2-1.3); BLOOD UREA NITROGEN 12 mg/dL (7-20); CALCIUM 9.3 mg/dL (8.4-10.2); CARBON DIOXIDE 30 mmol/L (22-30); CHLORIDE 96 mmol/L (98-107); POTASSIUM 4.7 mmol/L (3.6-5.0); TOTAL PROTEIN 6.5 g/dL (6.3-8.2)
[2019-09-19 13:25] LABS: GLUCOSE 611 mg/dL (75-110)
[2019-09-19] MEDS ORDERED: INSULIN REG, HUMAN 100 UNIT/ML 3 ML VIAL (PYX) IV ONE (15:13)
[2019-09-19] MEDS ORDERED: LISINOPRIL 10 MG TABLET PO ONE (15:17)
--- NOTE | 2019-09-19 15:17 | ER Document Report ---
ED General - General Chief Complaint: Blurred Vision Stated Complaint: BLURRY VISION, BP ISSUES Time Seen by Provider: 09/19/19 12:25 TRAVEL OUTSIDE OF THE [place] IN LAST 30 DAYS: No - HPI Notes: Patient is a 44-year-old gentleman who presents to the emergency department for evaluation. He states that over the last several weeks he is noted blurred vision, polyuria, polydipsia. 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 No fevers or chills. No nausea or vomiting. No dysuria or hematuria. Patient also relates that he has a history of hypertension. He used to be on lisinopril/HCTZ, as he was initially diagnosed about 5 years ago. He lost his insurance, thereby stopping his medication. - Related Data Allergies/Adverse Reactions: hydrocodone bitartrate [From Vicodin] Allergy (Mild, Verified 09/19/19 12:25) Hives Home Medications: [id number] medication for GERD, unknown by patient Past Medical History - General Information source: Patient - Social History Smoking Status: Current Every Day Smoker Chew tobacco use (# tins/day): No Frequency of alcohol use: Occasional Drug Abuse: Marijuana Family History: DM, Hypertension Patient has homicidal ideation: No - Past Medical History Cardiac Medical History: Reports: Hx Hypertension Denies: Hx Coronary Artery Disease, Hx Heart Attack Pulmonary Medical History: Reports: Hx Asthma Denies: Hx Bronchitis, Hx COPD, Hx Pneumonia Neurological Medical History: Denies: Hx Cerebrovascular Accident, Hx Seizures Renal/ Medical History: Denies: Hx Peritoneal Dialysis Musculoskeletal Medical History: Denies Hx Arthritis, Reports Hx Musculoskeletal Deformity, Reports Hx Musculoskeletal Trauma Past Surgical History: Reports: Hx Oral Surgery - [place] teeth - Immunizations Hx Diphtheria, Pertussis, Tetanus Vaccination: Yes Review of Systems - Review of Systems Constitutional: Malaise EENT: See HPI Genitourinary: See HPI -: Yes All other systems reviewed and negative Physical Exam - Vital signs Vitals: Temp Pulse Resp BP Pulse Ox 98.9 F 92 18 199/141 H 92 09/19/19 11:58 09/19/19 11:58 09/19/19 11:58 09/19/19 11:58 09/19/19 11:58 - Notes Notes: This is an obese 44-year-old gentleman who appears his stated age, in no acute distress. Vital signs reviewed, please refer to chart. Head is normocephalic, atraumatic. Pupils equal round, reactive to light. Neck is supple without meningismus. Heart is regular rate and rhythm. Lungs are clear to auscultation bilaterally. Abdomen is soft, nontender, normoactive bowel sounds throughout. Extremities without cyanosis, clubbing. Posterior calves are nontender. Peripheral pulses are equal. Skin is warm and dry. Patient is awake, alert, oriented x3. Cranial nerves II - XII are grossly intact without focal neurological deficits. Strength is plus 5 out of 5 bilateral upper and lower extremities. Sensation is intact. Reflexes symmetrical. Intact [id number], rapid alternating movements, [id number]. Course - Re-evaluation Re-evalutation: 09/19/19 15:16 Patient presents to the emergency department for evaluation. He is hypertensive, but admits he has untreated hypertension. His laboratory investigations reveal a blood glucose over 600, a pseudohyponatremia, but no acidosis. He is given IV fluids. He is given insulin. At this point, I will get an order some lisinopril. Patient is currently stable, we will continue to monitor. 09/19/19 17:06 I discussed this patient with Dr. Corey regarding this patient. He believes he would be best served by admission. I spoke with Dr. Tobias. He will accept the patient for further care on a telemetry bed. - Vital Signs Vital signs: Temp Pulse Resp BP Pulse Ox 98.9 F 92 19 190/140 H 97 09/19/19 11:58 09/19/19 11:58 09/19/19 16:31 09/19/19 17:10 09/19/19 16:31 - Laboratory Result Diagrams: 09/19/19 12:40 09/19/19 12:40 Laboratory results interpreted by me: 09/19/19 09/19/19 09/19/19 12:01 12:40 12:40 Sodium 131.8 L Chloride 96 L Glucose 611 H* POC Glucose > 550 H* ALT 79 H Alkaline Phosphatase 153 H Urine Glucose (UA) >=500 H 09/19/19 16:45 Sodium Chloride Glucose POC Glucose 224 H ALT Alkaline Phosphatase Urine Glucose (UA) - EKG Interpretation by Me Additional EKG results interpreted by me: 09/19/19 17:13 Sinus mechanism with rate of 88 bpm. Left axis deviation. Normal intervals. LVH with strain versus lateral ischemic changes. No old studies available for comparison. Discharge - Discharge Clinical Impression: New onset type 2 diabetes mellitus, Hypertensive urgency Condition: Stable Disposition: ADMITTED OBSERVATION Admitting Provider: Jatinder (Hospitalist) Unit Admitted: Telemetry
[2019-09-19 16:54] LABS: VENOUS BLOOD BASE EXCESS 0.8 mmol/L; VENOUS BLOOD HCO3 27.4 mmol/L (20-32); VENOUS BLOOD PCO2 50.8 mmHg (35-63); VENOUS BLOOD PH 7.35 (7.30-7.42)
[2019-09-19] MEDS ORDERED: PROMETHAZINE HCL INJ 25 MG/1 ML VIAL IV PRN (17:26)
[2019-09-19] MEDS ORDERED: ONDANSETRON HCL INJ/PF 4 MG/2 ML SDV IV PRN (17:26)
[2019-09-19] MEDS ORDERED: IPRATROPIUM/ALBUTEROL 0.5-2.5 MG/3 ML AMPUL NEB PRN (17:26)
[2019-09-19] MEDS ORDERED: METOPROLOL TARTRATE PF/INJ 5 MG/5 ML SDV IV PRN (17:31)
[2019-09-19] MEDS ORDERED: HYDRALAZINE HCL INJ/PF 20 MG/1 ML SDV IV PRN ×2 (17:31→18:02)
--- NOTE | 2019-09-19 17:34 | PDOC H&P ---
History of Present Illness History of Present Illness: TD COTTO is a 44 year old male past medical history of uncontrolled hypertension, obesity, presenting to ED complaining of one month of not feeling, blurry vision, polyuria, polydipsia and weight gain. 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 Patient is a current smoker, denies any personal history of CAD however his mom had a heart attack at the age of 57. Past Medical History Cardiac Medical History: Reports: Hypertension Denies: Coronary Artery Disease, Myocardial Infarction Pulmonary Medical History: Reports: Asthma Denies: Bronchitis, Chronic Obstructive Pulmonary Disease (COPD), Pneumonia Neurological Medical History: Denies: Seizures Musculoskeltal Medical History: Denies: Arthritis Hematology: Denies: Anemia Social History Smoking Status: Current Every Day Smoker Electronic Cigarette use?: No Family History Family History: DM, Hypertension Parental Family History Reviewed: Yes Children Family History Reviewed: Yes Sibling(s) Family History Reviewed.: Yes Medication/Allergy Home Medications: Lisinopril/Hydrochlorothiazide [Zestoretic 20-12.5 mg Tablet] 1 each PO DAILY #30 tablet 05/11/12 Clonidine HCl [Clonidine HCl ER] 0.1 mg PO DAILY 02/22/13 Cyclobenzaprine HCl [Flexeril 10 mg Tablet] 10 mg PO BID 02/22/13 Oxycodone HCl/Acetaminophen [Percocet 5-325 mg Tablet] 1 - 2 tab PO ASDIR PRN 02/22/13 Tramadol HCl [Ultram 50 mg Tablet] 50 mg PO ASDIR PRN #20 tablet 02/24/13 Lisinopril 20 mg PO DAILY #30 tablet 11/04/14 Methocarbamol [Robaxin 750 mg Tablet] 750 mg PO ASDIR PRN #40 tablet 11/04/14 Oxycodone HCl [Oxycontin Ir 5 Mg Tablet] 1 - 2 mg PO Q4H PRN #15 tablet 11/04/14 Lisinopril/Hydrochlorothiazide [Lisinopril-Hctz 20-25 mg Tab] 1 each PO DAILY #30 tablet 04/27/16 Cyclobenzaprine HCl [Flexeril 10 mg Tablet] 10 mg PO TIDP PRN #15 tab 09/04/18 Lidocaine [Lidoderm 5% (700 mg) Transdermal Patch] 1 patch TP DAILY #30 adh..patch 09/04/18 Lisinopril/Hydrochlorothiazide [Lisinopril-Hctz 20-25 mg Tab] 1 each PO DAILY #30 tablet 09/04/18 Doxycycline Hyclate 100 mg PO BID #14 capsule 10/16/18 Allergies/Adverse Reactions: hydrocodone bitartrate [From Vicodin] Allergy (Mild, Verified 09/19/19 12:25) Hives Review of Systems Review of Systems: as per hpi Physical Exam Vital Signs: Temp Pulse Resp BP Pulse Ox 98.9 F 92 19 190/140 H 97 09/19/19 11:58 09/19/19 11:58 09/19/19 16:31 09/19/19 17:10 09/19/19 16:31 Intake & Output 09/18/19 09/19/19 09/20/19 06:59 06:59 06:59 Intake Total 1000 Balance 1000 Weight 100.6 kg General appearance: PRESENT: obese Head exam: PRESENT: atraumatic, normocephalic Respiratory exam: PRESENT: clear to auscultation lucho. ABSENT: rales, rhonchi, wheezes Cardiovascular exam: PRESENT: RRR, tachycardia. ABSENT: diastolic murmur, rubs, systolic murmur GI/Abdominal exam: PRESENT: normal bowel sounds, soft. ABSENT: distended, guarding, mass, organolmegaly, rebound, tenderness Extremities exam: PRESENT: full ROM. ABSENT: calf tenderness, clubbing, pedal edema Neurological exam: PRESENT: alert, awake, oriented to person, oriented to place, oriented to time, oriented to situation, CN II-XII grossly intact. ABSENT: motor sensory deficit Skin exam: PRESENT: dry, intact, warm. ABSENT: cyanosis, rash Results Laboratory Results: 09/19/19 12:40 09/19/19 12:40 09/19/19 09/19/19 09/19/19 12:40 12:40 12:40 WBC 5.6 RBC 4.98 Hgb 14.5 Hct 44.0 MCV 89 MCH 29.2 MCHC 33.0 RDW 13.1 Plt Count 173 Seg Neutrophils % 64.4 VBG pH VBG pCO2 VBG HCO3 VBG Base Excess Sodium 131.8 L Potassium 4.7 Chloride 96 L Carbon Dioxide 30 Anion Gap 6 BUN 12 Creatinine 0.98 Est GFR ( Amer) > 60 Glucose 611 H* Calcium 9.3 Total Bilirubin 0.8 AST 46 Alkaline Phosphatase 153 H Total Protein 6.5 Albumin 4.0 Urine Color STRAW Urine Appearance CLEAR Urine pH 6.0 Ur Specific [place] 1.032 Urine Protein NEGATIVE Urine Glucose (UA) >=500 H Urine Ketones NEGATIVE Urine Blood NEGATIVE Urine Nitrite NEGATIVE Ur Leukocyte Esterase NEGATIVE Urine WBC (Auto) 0 Urine RBC (Auto) 0 09/19/19 09/19/19 14:22 16:36 WBC RBC Hgb Hct MCV MCH MCHC RDW Plt Count Seg Neutrophils % VBG pH Cancelled 7.35 VBG pCO2 Cancelled 50.8 VBG HCO3 Cancelled 27.4 VBG Base Excess Cancelled 0.8 Sodium Potassium Chloride Carbon Dioxide Anion Gap BUN Creatinine Est GFR ( Amer) Glucose Calcium Total Bilirubin AST Alkaline Phosphatase Total Protein Albumin Urine Color Urine Appearance Urine pH Ur Specific [place] Urine Protein Urine Glucose (UA) Urine Ketones Urine Blood Urine Nitrite Ur Leukocyte Esterase Urine WBC (Auto) Urine RBC (Auto) 09/19/19 12:40 Troponin I 0.038 Assessment and Plan - Diagnosis (1) Hypertensive emergency Is this a current diagnosis for this admission?: Yes Plan: Evidenced by elevated troponins. Presented with triple over triple. History of uncontrolled hypertension due to financial reasons. Last time took any medication for hypertension was about 3 years ago. Admit to telemetry, will start on lisinopril beta-blockers, lower BP by 25% in the first 4 hours, plan is to lower BP to normal ranges in the next 24 to 48 hours. Continue PRN IV hydralazine and metoprolol. (2) New onset type 2 diabetes mellitus Is this a current diagnosis for this admission?: Yes Plan: Complaining of polyuria, polyphagia, polydipsia, weight gain. Presented with blood glucose level of more than 600. Endorses family history of diabetes. Diabetic diet. Hypoglycemia protocol. Accu-Chek. Basal, sliding scale and correction insulin. Hemoglobin A1c. TSH. Lipid panel. Diabetic education. Depending on hemoglobin A1c patient might be able to go home on oral hypoglycemics. (3) Elevated troponin Is this a current diagnosis for this admission?: Yes Plan: Denies any history of CAD. Positive family history of CAD. Denies any chest pain, dyspnea on exertion, orthopnea paroxysmal nocturnal dyspnea. Troponins mildly elevated. Most likely due to hypertensive emergency. No acute EKG change. Admit telemetry, aspirin, statins, trend troponins, nitroglycerin as needed, IV morphine as needed. Given history of diabetes, hypertension, tobacco abuse and family history of CAD patient high risk for CAD. We will consult cardiology for possible stress test for further risk stratification. (4) Tobacco abuse Is this a current diagnosis for this admission?: Yes Plan: Counseled on quitting. NicoDerm patch will be provided. (5) Obesity Qualifiers: Obesity classification: adult class 2 (BMI 35 - 39.9) Is this a current diagnosis for this admission?: Yes Plan: BMI 38.1. Diet and lifestyle modification recommended. TSH, A1c, lipid panel.
[2019-09-19] MEDS ORDERED: DEXTROSE 50%-WATER 25 GM/50 ML DISP.SYRIN IV PRN ×2 (17:52)
[2019-09-19] MEDS ORDERED: DEXTROSE 40% GEL 15 GM TUBE PO PRN ×2 (17:52)
[2019-09-19] MEDS ORDERED: GLUCAGON,HUMAN RECOMB 1 MG INJ IM PRN (17:52)
[2019-09-19] MEDS ORDERED: CARVEDILOL 12.5 MG TABLET PO SCH (18:00)
[2019-09-19 18:23] LABS: CHOLESTEROL 131.44 mg/dL (0-200); TRIGLYCERIDES 298 mg/dL (<150)
[2019-09-19] MEDS ORDERED: INSULIN GLARGINE,HUM.REC.ANLOG 1,000 UNIT/10 ML VIAL SUBCUT SCH (18:30)
[2019-09-19 18:34] LABS: DIRECT LDL 78 mg/dL (<100)
[2019-09-19 18:40] LABS: VLDL CHOLESTEROL 59.6 mg/dL (10-31)
[2019-09-19 18:41] LABS: FREE T4 (FREE THYROXINE) 1.41 ng/dL (0.78-2.19)
[2019-09-19 18:55] LABS: THYROID STIMULATING HORMONE 0.87 uIU/mL (0.47-4.68)
[2019-09-19] MEDS ORDERED: NICARDIPINE HCL RTU, ISO-OS 20 MG/200 ML RTUINJ IV PRN (19:50)
[2019-09-19] MEDS ORDERED: NICARDIPINE HCL RTU, ISO-OS 20 MG/200 ML RTUINJ IV ONE (20:05)
[2019-09-19] MEDS: ASPIRIN 81 MG TABLET, CHEWABLE PO SCH (20:11)
[2019-09-19 20:59] LABS: URINE AMPHETAMINES SCREEN NEGATIVE; URINE BARBITURATES SCREEN NEGATIVE; URINE BENZODIAZEPINES SCREEN NEGATIVE; URINE MARIJUANA (THC) SCREEN NEGATIVE; URINE METHADONE SCREEN NEGATIVE; URINE PHENCYCLIDINE SCREEN NEGATIVE
[2019-09-19 21:01] LABS: URINE COCAINE SCREEN UNCONFIRMED POSITIVE
[2019-09-19] MEDS ORDERED: CLONIDINE 0.3 MG/24 HR PATCH.TDWK TD SCH (22:00)
[2019-09-19] MEDS: FAMOTIDINE 20 MG TABLET PO SCH (23:07)
[2019-09-19] MEDS: ATORVASTATIN CALCIUM 40 MG TABLET PO SCH (23:07)
[2019-09-19] MEDS: CARVEDILOL 12.5 MG TABLET PO SCH (23:08)
[2019-09-19] MEDS: INSULIN LISPRO 100 UNIT/ML 3 ML VIAL SUBCUT SCH (23:17)
[2019-09-19] MEDS: ACETAMINOPHEN 325 MG TABLET PO PRN (23:17)
--- NOTE | 2019-09-19 23:46 | Progress Note ---
Provider Note Provider Note: I was called by to evaluate this patient in the ED for ICU admission. TD COTTO is a 44 year old male past medical history of uncontrolled hypertension, obesity, presenting to ED complaining of one month of not feeling, blurry vision, polyuria, polydipsia and weight gain. Denies any chest pain, shortness of breath, orthopnea, paroxysmal nocturnal dyspnea, lower extremity edema. He presented to the ED with c/o just not feeling himself, he sates that he checked his BP and blood glucose and the numbers were high, but could not quantify. He states that he has no insurance and therefore stopped taking his antihypertensives. He has no history of diabetes. In the ED his BP was 199/141 with a mean blood pressure of 160 heart rate was 92 O2 sat 99% on room air. His blood sugar was noted to be 611. His urine drug screen was positive for cocaine. BUN was 12 creatinine 0.98. He was seen by the hospitalist and admitted for observation. At some point during his ED admission he was started on Cardene, when I evaluated him in the ED his blood pressure was 171/105, he was ambulating in the room with no complaints. His home antihypertensives were reordered and Cardene was discontinued. His most recent BP is 157/96. He will therefore be admitted to the hospitalists service as an observation. If our help is needed please do not hesitate to call. General appearance: PRESENT: obese Head exam: PRESENT: atraumatic, normocephalic Respiratory exam: PRESENT: clear to auscultation lucho. ABSENT: rales, rhonchi, wheezes Cardiovascular exam: PRESENT: RRR, tachycardia. ABSENT: diastolic murmur, rubs, systolic murmur GI/Abdominal exam: PRESENT: normal bowel sounds, soft. ABSENT: distended, guarding, mass, organolmegaly, rebound, tenderness Extremities exam: PRESENT: full ROM. ABSENT: calf tenderness, clubbing, pedal edema Neurological exam: PRESENT: alert, awake, oriented to person, oriented to place, oriented to time, oriented to situation, CN II-XII grossly intact. ABSENT: motor sensory deficit Skin exam: PRESENT: dry, intact, warm. ABSENT: cyanosis, rash
[2019-09-20 07:57] LABS: ABSOLUTE EOSINOPHILS # (AUTO) 0.2 10^3/uL (0.0-0.6); ABSOLUTE LYMPHOCYTES (AUTO) 1.5 10^3/uL (0.5-4.7); ABSOLUTE MONOCYTES (AUTO) 0.4 10^3/uL (0.1-1.4); BASOPHILS % (AUTO) 0.8 % (0-2); EOSINOPHILS % (AUTO) 3.5 % (0-6); HEMATOCRIT 41.3 % (37.9-51.0); HEMOGLOBIN 14.1 g/dL (13.5-17.0); LYMPHOCYTES % (AUTO) 24.4 % (13-45); MEAN CORPUSCULAR HEMOGLOBIN 29.6 pg (27.0-33.4); MEAN CORPUSCULAR HGB CONC 34.1 g/dL (32.0-36.0); MEAN CORPUSCULAR VOLUME 87 fl (80-97); MONOCYTES % (AUTO) 6.2 % (3-13); PLATELET COUNT 167 10^3/uL (150-450); RED BLOOD COUNT 4.76 10^6/uL (4.35-5.55); RED CELL DISTRIBUTION WIDTH 13.1 % (11.5-14.0); SEGMENTED NEUTROPHILS % (AUTO) 65.1 % (42-78); TOTAL CELLS COUNTED % (AUTO) 100 %; WHITE BLOOD COUNT 6.1 10^3/uL (4.0-10.5)
[2019-09-20 08:05] LABS: ALBUMIN 3.7 g/dL (3.5-5.0); ALKALINE PHOSPHATASE 105 U/L (38-126); ANION GAP 5 (5-19); ASPARTATE AMINO TRANSFERASE 50 U/L (17-59); BLOOD UREA NITROGEN 15 mg/dL (7-20); CARBON DIOXIDE 26 mmol/L (22-30); CHLORIDE 103 mmol/L (98-107); GLUCOSE 235 mg/dL (75-110); POTASSIUM 3.9 mmol/L (3.6-5.0); TOTAL PROTEIN 5.9 g/dL (6.3-8.2)
[2019-09-20] MEDS: INSULIN LISPRO 100 UNIT/ML 3 ML VIAL SUBCUT SCH ×4 (09:42→22:14)
[2019-09-20] MEDS: FAMOTIDINE 20 MG TABLET PO SCH ×2 (09:43→22:13)
[2019-09-20] MEDS: BUTALB/ACETAMINOPHEN/CAFFEINE 1 TAB EACH PO PRN ×2 (09:43→16:44)
--- NOTE | 2019-09-20 09:43 | PDOC PROGRESS REPORT ---
Subjective Progress Note for:: 09/20/19 Subjective:: 44 year old male past medical history of uncontrolled hypertension, obesity, presenting to ED complaining of one month of not feeling, blurry vision, polyuria, polydipsia and weight gain. 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 Patient is a current smoker, denies any personal history of CAD however his mom had a heart attack at the age of 57. [id number]-[id number]-old man with history of uncontrolled hypertension, obesity came to the emergency room with complaints of blurry vision polyuria polydipsia and weight gain. Hemoglobin A1c came back at 11.9. Presently is on Coreg 25 mg twice a day, amlodipine 5 mg twice a day, lisinopril 20 mg twice a day, IV hydralazine on as needed basis. Urine drug screen positive for cocaine. Most likely uncontrolled blood pressure secondary to cocaine use. Compliance of headaches this morning. Reason For Visit: HYPERTENSIVE EMERGENCY,NEW ONSET DIABETES Physical Exam Vital Signs: Temp Pulse Resp BP Pulse Ox 98.0 F 70 18 182/120 H 96 09/20/19 07:45 09/20/19 07:45 09/20/19 07:45 09/20/19 09:00 09/20/19 07:45 Intake & Output 09/19/19 09/20/19 09/21/19 06:59 06:59 06:59 Intake Total 2119 Balance 2119 Weight 86.7 kg General appearance: PRESENT: no acute distress, obese Head exam: PRESENT: atraumatic Eye exam: PRESENT: PERRLA Mouth exam: PRESENT: moist, tongue midline Teeth exam: PRESENT: poor dentation Neck exam: ABSENT: carotid bruit, JVD, lymphadenopathy, thyromegaly Respiratory exam: PRESENT: decreased breath sounds Cardiovascular exam: PRESENT: RRR. ABSENT: diastolic murmur, rubs, systolic murmur Pulses: PRESENT: normal dorsalis pedis pul GI/Abdominal exam: PRESENT: normal bowel sounds, soft. ABSENT: distended, guarding, mass, organolmegaly, rebound, tenderness Rectal exam: PRESENT: deferred Extremities exam: PRESENT: full ROM. ABSENT: calf tenderness, clubbing, pedal edema Neurological exam: PRESENT: alert, awake, oriented to person, oriented to place, oriented to time, oriented to situation, CN II-XII grossly intact. ABSENT: motor sensory deficit Psychiatric exam: PRESENT: appropriate affect, normal mood. ABSENT: homicidal ideation, suicidal ideation Results Laboratory Results: 09/20/19 07:25 09/20/19 07:25 09/19/19 09/19/19 09/19/19 12:40 12:40 12:40 WBC 5.6 RBC 4.98 Hgb 14.5 Hct 44.0 MCV 89 MCH 29.2 MCHC 33.0 RDW 13.1 Plt Count 173 Seg Neutrophils % 64.4 VBG pH VBG pCO2 VBG HCO3 VBG Base Excess Sodium 131.8 L Potassium 4.7 Chloride 96 L Carbon Dioxide 30 Anion Gap 6 BUN 12 Creatinine 0.98 Est GFR ( Amer) > 60 Glucose 611 H* Calcium 9.3 Magnesium Total Bilirubin 0.8 AST 46 Alkaline Phosphatase 153 H Total Protein 6.5 Albumin 4.0 Triglycerides Cholesterol LDL Cholesterol Direct VLDL Cholesterol HDL Cholesterol TSH Free T4 Urine Color STRAW Urine Appearance CLEAR Urine pH 6.0 Ur Specific [place] 1.032 Urine Protein NEGATIVE Urine Glucose (UA) >=500 H Urine Ketones NEGATIVE Urine Blood NEGATIVE Urine Nitrite NEGATIVE Ur Leukocyte Esterase NEGATIVE Urine WBC (Auto) 0 Urine RBC (Auto) 0 09/19/19 09/19/19 09/19/19 12:40 12:40 14:22 WBC RBC Hgb Hct MCV MCH MCHC RDW Plt Count Seg Neutrophils % VBG pH Cancelled VBG pCO2 Cancelled VBG HCO3 Cancelled VBG Base Excess Cancelled Sodium Potassium Chloride Carbon Dioxide Anion Gap BUN Creatinine Est GFR ( Amer) Glucose Calcium Magnesium Total Bilirubin AST Alkaline Phosphatase Total Protein Albumin Triglycerides 298 H Cholesterol 131.44 LDL Cholesterol Direct 78 VLDL Cholesterol 59.6 H HDL Cholesterol 31 L TSH 0.87 Free T4 1.41 Urine Color Urine Appearance Urine pH Ur Specific [place] Urine Protein Urine Glucose (UA) Urine Ketones Urine Blood Urine Nitrite Ur Leukocyte Esterase Urine WBC (Auto) Urine RBC (Auto) 09/19/19 09/20/19 09/20/19 16:36 07:25 07:25 WBC 6.1 RBC 4.76 Hgb 14.1 Hct 41.3 MCV 87 MCH 29.6 MCHC 34.1 RDW 13.1 Plt Count 167 Seg Neutrophils % 65.1 VBG pH 7.35 VBG pCO2 50.8 VBG HCO3 27.4 VBG Base Excess 0.8 Sodium 134.1 L Potassium 3.9 Chloride 103 Carbon Dioxide 26 Anion Gap 5 BUN 15 Creatinine 0.86 Est GFR ( Amer) > 60 Glucose 235 H Calcium 9.0 Magnesium Total Bilirubin 1.0 AST 50 Alkaline Phosphatase 105 Total Protein 5.9 L Albumin 3.7 Triglycerides Cholesterol LDL Cholesterol Direct VLDL Cholesterol HDL Cholesterol TSH Free T4 Urine Color Urine Appearance Urine pH Ur Specific [place] Urine Protein Urine Glucose (UA) Urine Ketones Urine Blood Urine Nitrite Ur Leukocyte Esterase Urine WBC (Auto) Urine RBC (Auto) 09/20/19 07:25 WBC RBC Hgb Hct MCV MCH MCHC RDW Plt Count Seg Neutrophils % VBG pH VBG pCO2 VBG HCO3 VBG Base Excess Sodium Potassium Chloride Carbon Dioxide Anion Gap BUN Creatinine Est GFR ( Amer) Glucose Calcium Magnesium 1.9 Total Bilirubin AST Alkaline Phosphatase Total Protein Albumin Triglycerides Cholesterol LDL Cholesterol Direct VLDL Cholesterol HDL Cholesterol TSH Free T4 Urine Color Urine Appearance Urine pH Ur Specific [place] Urine Protein Urine Glucose (UA) Urine Ketones Urine Blood Urine Nitrite Ur Leukocyte Esterase Urine WBC (Auto) Urine RBC (Auto) 09/19/19 09/19/19 09/19/19 12:40 17:51 17:51 Troponin I 0.038 Cancelled NT-Pro-B Natriuret Pep 75 09/19/19 09/20/19 19:07 00:56 Troponin I 0.040 0.033 NT-Pro-B Natriuret Pep Assessment and Plan - Diagnosis (1) Hypertensive emergency Is this a current diagnosis for this admission?: Yes Plan: Evidenced by elevated troponins. Presented with triple over triple. History of uncontrolled hypertension due to financial reasons. Last time took any medication for hypertension was about 3 years ago. Admit to telemetry, will start on lisinopril beta-blockers, lower BP by 25% in the first 4 hours, plan is to lower BP to normal ranges in the next 24 to 48 hours. Continue PRN IV hydralazine and metoprolol. 09/20/2019-patient admitted with hypertensive emergency patient was initially on Cardene drip in the emergency room. ICU consult was done the recommendation is patient can be managed in IMCU. Urine drug screen is positive for cocaine. Presently on Coreg 25 mg p.o. twice daily, lisinopril 20 mg p.o. twice daily, amlodipine 5 mg p.o. twice daily, clonidine patch. He is also on IV hydralazine 10 mg every 4 hours as needed. Plan is to continue the present management at this time. Discussed the case with Dr. Pierce , he thinks high blood pressure most likely secondary to cocaine use. (2) New onset type 2 diabetes mellitus Is this a current diagnosis for this admission?: Yes Plan: Complaining of polyuria, polyphagia, polydipsia, weight gain. Presented with blood glucose level of more than 600. Endorses family history of diabetes. Diabetic diet. Hypoglycemia protocol. Accu-Chek. Basal, sliding scale and correction insulin. Hemoglobin A1c. TSH. Lipid panel. Diabetic education. Depending on hemoglobin A1c patient might be able to go home on oral hyp oglycemics. 09/20/2019-hemoglobin A1c is 11.9, patient is presently on Lantus 25 units daily, and on insulin sliding scale. To change the Lantus to 20 units twice a day and to continue insulin sliding scale. Diet exercise weight loss lifestyle modifications discussed with the patient dietary consult will be requested. (3) Elevated troponin Is this a current diagnosis for this admission?: Yes Plan: Denies any history of CAD. Positive family history of CAD. Denies any chest pain, dyspnea on exertion, orthopnea paroxysmal nocturnal dyspnea. Troponins mildly elevated. Most likely due to hypertensive emergency. No acute EKG change. Admit telemetry, aspirin, statins, trend troponins, nitroglycerin as needed, IV morphine as needed. Given history of diabetes, hypertension, tobacco abuse and family history of CAD patient high risk for CAD. We will consult cardiology for possible stress test for further risk stratifi cation. 09/20/2019-patient came in a slightly elevated troponins most likely secondary to hypertensive emergency. Presently on aspirin, statins. He is also on nitroglycerin, IV morphine PRN. Latest troponin is 0.033. No complaints of chest pains this morning. (4) Tobacco abuse Is this a current diagnosis for this admission?: No Plan: Counseled on quitting. NicoDerm patch will be provided. (5) Obesity Qualifiers: Obesity classification: adult class 2 (BMI 35 - 39.9) Is this a current diagnosis for this admission?: No Plan: BMI 38.1. Diet and lifestyle modification recommended. TSH, A1c, lipid panel. (6) Cocaine abuse Is this a current diagnosis for this admission?: Yes Plan: 09/20/2019-urine drug screen is positive for cocaine. Counseling was provided about avoiding recreational drugs.
[2019-09-20] MEDS: ASPIRIN 81 MG TABLET, CHEWABLE PO SCH (09:44)
[2019-09-20] MEDS: DOCUSATE SODIUM 100 MG CAPSULE PO SCH (09:44)
[2019-09-20] MEDS: AMLODIPINE BESYLATE 5 MG TABLET PO SCH ×2 (09:44→22:08)
[2019-09-20] MEDS: LISINOPRIL 10 MG TABLET PO SCH ×2 (09:44→22:12)
[2019-09-20] MEDS: CARVEDILOL 12.5 MG TABLET PO SCH ×2 (09:44→22:00)
[2019-09-20] MEDS: ENOXAPARIN SODIUM INJ 40 MG/0.4 ML DISP.SYRIN SUBCUT SCH (09:45)
[2019-09-20] MEDS ORDERED: LISINOPRIL 10 MG TABLET PO SCH (10:00)
[2019-09-20] MEDS: HYDRALAZINE HCL INJ/PF 20 MG/1 ML SDV IV PRN ×2 (12:30→22:13)
[2019-09-20] MEDS: INSULIN GLARGINE,HUM.REC.ANLOG 1,000 UNIT/10 ML VIAL SUBCUT SCH ×2 (12:30→17:23)
--- NOTE | 2019-09-20 13:55 | PDOC CONSULTATION ---
Consultation Consult Date: 09/20/19 Provider Consulted: ROSAURA JONES Consult reason:: Uncontrolled hypertension History of Present Illness Admission Date/PCP: 09/19/19 17:51 Patient complains of: Headache History of Present Illness: TD COTTO is a 44 year old male with the following active problems 1. Systemic hypertension 2. Cocaine abuse 3. Nicotine dependence 44-year-old male who presented to the hospital with complaints of blurry vision headache and head throbbing. He was found to have uncontrolled hypertension. He reported having used cocaine. Since admission to the hospital blood pressures improved. Most of his symptoms have improved although he continues to endorse some headache. Past Medical History Cardiac Medical History: Reports: Hypertension Denies: Coronary Artery Disease, Myocardial Infarction Pulmonary Medical History: Reports: Asthma Denies: Bronchitis, Chronic Obstructive Pulmonary Disease (COPD), Pneumonia Neurological Medical History: Denies: Seizures Musculoskeltal Medical History: Denies: Arthritis Psychiatric Medical History: Denies: Depression Hematology: Denies: Anemia Social History Smoking Status: Current Every Day Smoker Electronic Cigarette use?: No Frequency of Alcohol Use: Social Hx Recreational Drug Use: Yes Drugs: Marijuana Hx Prescription Drug Abuse: No Family History Family History: DM, Hypertension Parental Family History Reviewed: Yes - No familial illnesses Children Family History Reviewed: NA Sibling(s) Family History Reviewed.: NA Medication/Allergy Home Medications: Omeprazole Magnesium [Prilosec Otc] 20 mg PO DAILY 09/19/19 Allergies/Adverse Reactions: hydrocodone bitartrate [From Vicodin] Allergy (Mild, Verified 09/19/19 12:25) Hives Review of Systems Constitutional: PRESENT: as per HPI Neurological: PRESENT: other - Headache, blurry vision Physical Exam Vital Signs: Temp Pulse Resp BP Pulse Ox 98.0 F 70 18 171/119 H 96 09/20/19 07:45 09/20/19 07:45 09/20/19 07:45 09/20/19 07:45 09/20/19 07:45 Intake & Output 09/19/19 09/20/19 09/21/19 06:59 06:59 06:59 Intake Total 2119 Balance 2119 Weight 86.7 kg General appearance: PRESENT: no acute distress, cooperative, well-developed, well-nourished Head exam: PRESENT: atraumatic, normocephalic Eye exam: PRESENT: conjunctiva pink, EOMI Mouth exam: PRESENT: moist Respiratory exam: PRESENT: symmetrical, unlabored Cardiovascular exam: PRESENT: RRR, +S1, +S2 Pulses: PRESENT: normal radial pulses GI/Abdominal exam: PRESENT: soft Rectal exam: PRESENT: deferred Musculoskeletal exam: PRESENT: normal inspection Neurological exam: PRESENT: alert, awake, oriented to person, oriented to place, oriented to time, oriented to situation Psychiatric exam: PRESENT: appropriate affect Skin exam: PRESENT: dry, intact, normal color Results Laboratory Results: 09/20/19 07:25 09/20/19 07:25 09/19/19 09/19/19 09/19/19 12:40 12:40 12:40 WBC 5.6 RBC 4.98 Hgb 14.5 Hct 44.0 MCV 89 MCH 29.2 MCHC 33.0 RDW 13.1 Plt Count 173 Seg Neutrophils % 64.4 VBG pH VBG pCO2 VBG HCO3 VBG Base Excess Sodium 131.8 L Potassium 4.7 Chloride 96 L Carbon Dioxide 30 Anion Gap 6 BUN 12 Creatinine 0.98 Est GFR ( Amer) > 60 Glucose 611 H* Calcium 9.3 Total Bilirubin 0.8 AST 46 Alkaline Phosphatase 153 H Total Protein 6.5 Albumin 4.0 Triglycerides Cholesterol LDL Cholesterol Direct VLDL Cholesterol HDL Cholesterol TSH Free T4 Urine Color STRAW Urine Appearance CLEAR Urine pH 6.0 Ur Specific [place] 1.032 Urine Protein NEGATIVE Urine Glucose (UA) >=500 H Urine Ketones NEGATIVE Urine Blood NEGATIVE Urine Nitrite NEGATIVE Ur Leukocyte Esterase NEGATIVE Urine WBC (Auto) 0 Urine RBC (Auto) 0 09/19/19 09/19/19 09/19/19 12:40 12:40 14:22 WBC RBC Hgb Hct MCV MCH MCHC RDW Plt Count Seg Neutrophils % VBG pH Cancelled VBG pCO2 Cancelled VBG HCO3 Cancelled VBG Base Excess Cancelled Sodium Potassium Chloride Carbon Dioxide Anion Gap BUN Creatinine Est GFR ( Amer) Glucose Calcium Total Bilirubin AST Alkaline Phosphatase Total Protein Albumin Triglycerides 298 H Cholesterol 131.44 LDL Cholesterol Direct 78 VLDL Cholesterol 59.6 H HDL Cholesterol 31 L TSH 0.87 Free T4 1.41 Urine Color Urine Appearance Urine pH Ur Specific [place] Urine Protein Urine Glucose (UA) Urine Ketones Urine Blood Urine Nitrite Ur Leukocyte Esterase Urine WBC (Auto) Urine RBC (Auto) 09/19/19 09/20/19 09/20/19 16:36 07:25 07:25 WBC 6.1 RBC 4.76 Hgb 14.1 Hct 41.3 MCV 87 MCH 29.6 MCHC 34.1 RDW 13.1 Plt Count 167 Seg Neutrophils % 65.1 VBG pH 7.35 VBG pCO2 50.8 VBG HCO3 27.4 VBG Base Excess 0.8 Sodium 134.1 L Potassium 3.9 Chloride 103 Carbon Dioxide 26 Anion Gap 5 BUN 15 Creatinine 0.86 Est GFR ( Amer) > 60 Glucose 235 H Calcium 9.0 Total Bilirubin 1.0 AST 50 Alkaline Phosphatase 105 Total Protein 5.9 L Albumin 3.7 Triglycerides Cholesterol LDL Cholesterol Direct VLDL Cholesterol HDL Cholesterol TSH Free T4 Urine Color Urine Appearance Urine pH Ur Specific [place] Urine Protein Urine Glucose (UA) Urine Ketones Urine Blood Urine Nitrite Ur Leukocyte Esterase Urine WBC (Auto) Urine RBC (Auto) 09/19/19 09/19/19 09/19/19 12:40 17:51 17:51 Troponin I 0.038 Cancelled NT-Pro-B Natriuret Pep 75 09/19/19 09/20/19 19:07 00:56 Troponin I 0.040 0.033 NT-Pro-B Natriuret Pep EKG Comments: Twelve-lead EKG. Independently reviewed by me. 09/19/2019 Sinus rhythm, left ventricular hypertrophy with repolarization abnormality, ventricular rate is 88 bpm, normal AV conduction, QTC is 431 ms Troponin I 0.033 0.040 0.038 Creatinine is 0.86 Urine tox screen is positive for cocaine Assessment & Plan - Diagnosis (1) Hypertensive urgency Is this a current diagnosis for this admission?: Yes Plan: Uncontrolled hypertension in the setting of cocaine abuse Recommend nonselective beta-blockers or calcium blockers in addition to nitrates for better control of blood pressure Stop cocaine abuse No added salt in the diet Continue lisinopril 10 mg daily Continue carvedilol 25 mg twice daily Continue clonidine hydrochloride transdermal patch Continue amlodipine 5 mg daily As blood pressure improves he may require fewer medications or decrease in dose of some of these medications. (2) Elevated troponin Is this a current diagnosis for this admission?: Yes Plan: Elevated troponin in the setting of hypertensive emergency on a background of cocaine abuse and no existing therapy for hypertension Elevated troponins are probably a reflection of this and unlikely to be due to coronary artery disease or acute coronary syndrome. Given the above feel strongly that in the current context with cocaine abuse stress testing and re-stratification is not necessary.. (3) Tobacco abuse Is this a current diagnosis for this admission?: Yes Plan: Needs to stop smoking - Notes Notes: Would recommend outpatient follow-up for continued management of hypertension Nicotine cessation as well as stopping use of cocaine is strongly advised Outpatient re-stratification if necessary based on symptoms
--- NOTE | 2019-09-20 14:34 | EKG REPORT ---
SEVERITY:- ABNORMAL ECG - SINUS RHYTHM LVH WITH SECONDARY REPOLARIZATION ABNORMALITY : Confirmed by: Stan Nava MD 20-Sep-2019 14:32:41
[2019-09-20] MEDS: ATORVASTATIN CALCIUM 40 MG TABLET PO SCH (22:13)
[2019-09-20] MEDS: NITROGLYCERIN 2% OINTMENT 1 GM PACKET TP SCH (23:43)
[2019-09-21] MEDS: NITROGLYCERIN 2% OINTMENT 1 GM PACKET TP SCH ×3 (01:16→12:10)
[2019-09-21 05:19] LABS: ABSOLUTE EOSINOPHILS # (AUTO) 0.2 10^3/uL (0.0-0.6); ABSOLUTE LYMPHOCYTES (AUTO) 1.5 10^3/uL (0.5-4.7); ABSOLUTE MONOCYTES (AUTO) 0.5 10^3/uL (0.1-1.4); ABSOLUTE NEUT (AUTO) 4.2 10^3/uL (1.7-8.2); BASOPHILS % (AUTO) 0.6 % (0-2); EOSINOPHILS % (AUTO) 3.2 % (0-6); HEMATOCRIT 41.1 % (37.9-51.0); HEMOGLOBIN 13.7 g/dL (13.5-17.0); LYMPHOCYTES % (AUTO) 22.8 % (13-45); MEAN CORPUSCULAR HGB CONC 33.4 g/dL (32.0-36.0); MEAN CORPUSCULAR VOLUME 87 fl (80-97); MONOCYTES % (AUTO) 7.9 % (3-13); PLATELET COUNT 189 10^3/uL (150-450); RED BLOOD COUNT 4.73 10^6/uL (4.35-5.55); RED CELL DISTRIBUTION WIDTH 13.2 % (11.5-14.0); SEGMENTED NEUTROPHILS % (AUTO) 65.5 % (42-78); TOTAL CELLS COUNTED % (AUTO) 100 %; WHITE BLOOD COUNT 6.4 10^3/uL (4.0-10.5)
[2019-09-21 05:44] LABS: ALBUMIN 3.5 g/dL (3.5-5.0); ALKALINE PHOSPHATASE 100 U/L (38-126); ANION GAP 7 (5-19); ASPARTATE AMINO TRANSFERASE 37 U/L (17-59); BILIRUBIN,TOTAL 0.9 mg/dL (0.2-1.3); BLOOD UREA NITROGEN 20 mg/dL (7-20); CALCIUM 9.1 mg/dL (8.4-10.2); CARBON DIOXIDE 24 mmol/L (22-30); CHLORIDE 103 mmol/L (98-107); GLUCOSE 185 mg/dL (75-110); POTASSIUM 3.7 mmol/L (3.6-5.0); TOTAL PROTEIN 5.9 g/dL (6.3-8.2)
[2019-09-21] MEDS: INSULIN LISPRO 100 UNIT/ML 3 ML VIAL SUBCUT SCH ×2 (07:53→12:09)
[2019-09-21] MEDS ORDERED: PROMETHAZINE HCL INJ 25 MG/1 ML VIAL IV PRN (08:00)
[2019-09-21] MEDS ORDERED: ONDANSETRON HCL INJ/PF 4 MG/2 ML SDV IV PRN (08:00)
[2019-09-21] MEDS: DOCUSATE SODIUM 100 MG CAPSULE PO SCH (09:24)
[2019-09-21] MEDS: ACETAMINOPHEN 325 MG TABLET PO PRN (09:24)
[2019-09-21] MEDS: LISINOPRIL 10 MG TABLET PO SCH (09:25)
[2019-09-21] MEDS: AMLODIPINE BESYLATE 5 MG TABLET PO SCH (09:25)
[2019-09-21] MEDS: ENOXAPARIN SODIUM INJ 40 MG/0.4 ML DISP.SYRIN SUBCUT SCH (09:25)
[2019-09-21] MEDS: CARVEDILOL 12.5 MG TABLET PO SCH (09:25)
[2019-09-21] MEDS: ASPIRIN 81 MG TABLET, CHEWABLE PO SCH (09:25)
[2019-09-21] MEDS: FAMOTIDINE 20 MG TABLET PO SCH (09:25)
[2019-09-21] MEDS ORDERED: INSULIN GLARGINE,HUM.REC.ANLOG 1,000 UNIT/10 ML VIAL SUBCUT SCH (10:00)
[2019-09-21 10:12] VITALS: BP 130/110
--- NOTE | 2019-09-21 13:44 | PDOC DISCHARGE SUMMARY ---
Impression - Admit/DC Date/PCP Admission Date/Primary Care Provider: 09/19/19 17:51 [facility] Discharge Date: 09/21/19 - Discharge Diagnosis (1) Hypertensive emergency Is this a current diagnosis for this admission?: Yes (2) New onset type 2 diabetes mellitus Is this a current diagnosis for this admission?: Yes (3) Elevated troponin Is this a current diagnosis for this admission?: Yes (4) Tobacco abuse Is this a current diagnosis for this admission?: Yes (5) Obesity Is this a current diagnosis for this admission?: No (6) Cocaine abuse Is this a current diagnosis for this admission?: Yes - Assessment Summary: (1) Hypertensive emergency Is this a current diagnosis for this admission?: Yes Plan: Evidenced by elevated troponins. Presented with triple over triple. History of uncontrolled hypertension due to financial reasons. Last time took any medication for hypertension was about 3 years ago. Admit to telemetry, will start on lisinopril beta-blockers, lower BP by 25% in the first 4 hours, plan is to lower BP to normal ranges in the next 24 to 48 hours. Continue PRN IV hydralazine and metoprolol. 09/20/2019-patient admitted with hypertensive emergency patient was initially on Cardene drip in the emergency room. ICU consult was done the recommendation is patient can be managed in IMCU. Urine drug screen is positive for cocaine. Presently on Coreg 25 mg p.o. twice daily, lisinopril 20 mg p.o. twice daily, amlodipine 5 mg p.o. twice daily, clonidine patch. He is also on IV hydralazine 10 mg every 4 hours as needed. Plan is to continue the present management at this time. Discussed the case with Dr. Pierce , he thinks high blood pressure most likely secondary to cocaine use. 09/21/2019-hypertensive emergency most likely secondary to cocaine use. Patient was given a prescription for amlodipine 5 mg p.o. bid lisinopril 5 mg p.o. twice daily, clonidine patch, Coreg 12.5 mg p.o. twice daily. He was also given aspirin and atorvastatin. Diet exercise weight loss lifestyle modification discussed with the patient advised him about avoiding recreational drug use. (2) New onset type 2 diabetes mellitus Is this a current diagnosis for this admission?: Yes Plan: Complaining of polyuria, polyphagia, polydipsia, weight gain. Presented with blood glucose level of more than 600. Endorses family history of diabetes. Diabetic diet. Hypoglycemia protocol. Accu-Chek. Basal, sliding scale and correction insulin. Hemoglobin A1c. TSH. Lipid panel. Diabetic education. Depending on hemoglobin A1c patient might be able to go home on oral hypoglycemics. 09/20/2019-hemoglobin A1c is 11.9, patient is presently on Lantus 25 units daily, and on insulin sliding scale. To change the Lantus to 20 units twice a day and to continue insulin sliding scale. Diet exercise weight loss lifestyle mo difications discussed with the patient dietary consult will be requested. 09/21/2019-patient's hemoglobin is 11.9, patient is going home on Lantus 25 units twice daily, insulin sliding scale. Prescription was given for insulin sliding scale. glucometer machine, lancets, glucometer strips prescription was given. (3) Elevated troponin Is this a current diagnosis for this admission?: Yes Plan: Denies any history of CAD. Positive family history of CAD. Denies any chest pain, dyspnea on exertion, orthopnea paroxysmal nocturnal d yspnea. Troponins mildly elevated. Most likely due to hypertensive emergency. No acute EKG change. Admit telemetry, aspirin, statins, trend troponins, nitroglycerin as needed, IV morphine as needed. Given history of diabetes, hypertension, tobacco abuse and family history of CAD patient high risk for CAD. We will consult cardiology for possible stress test for further risk stratification. 09/20/2019-patient came in a slightly elevated troponins most likely secondary to hypertensive emergency. Presently on aspirin, statins. He is also on nitroglycerin, IV morphine PRN. Latest troponin is 0.033. No complaints of chest pains this morning. 09/21/2019-patient denies any chest pains, elevated troponins most likely secondary to hypertensive emergency. (4) Tobacco abuse Is this a current diagnosis for this admission?: No Plan: Counseled on quitting. NicoDerm patch will be provided. (5) Obesity Qualifiers: Obesity classification: adult class 2 (BMI 35 - 39.9) Is this a current diagnosis for this admission?: No Plan: BMI 38.1. Diet and lifestyle modification recommended. TSH, A1c, lipid panel. (6) Cocaine abuse Is this a current diagnosis for this admission?: Yes Plan: 09/20/2019-urine drug screen is positive for cocaine. Counseling was provided about avoiding recreational drugs. - Additional Information Discharge Diet: Diabetic Discharge Activity: Activity As Tolerated Referrals: [facility] [Primary Care Provider] - 10/10/19 3:30 pm (The earlierst they could get him in is 10/09 @ 3:[address] Dodd via telephone appt.) Prescriptions: Aspirin [Aspirin 81 mg Chewable Tablet] 81 mg PO DAILY 30 Days #30 tab.chew Clonidine [Catapres-Tts 3 (0.3 mg/24 Hr) Transderm Patch] 1 each TD Mo@10 28 Days #4 patch.tdwk Carvedilol [Coreg 12.5 mg Tablet] 12.5 mg PO Q12 30 Days #60 tablet Insulin Lispro [Humalog Insulin (Lispro) 100 unit/mL] 0 - 12 unit SUBCUT ACHS 30 Days #1 vial Insulin Glargine,Hum.rec.anlog [Lantus Insulin 100 Unit/1 ml 10 ml] 25 unit SUBCUT Q12 30 Days #2 vial Atorvastatin Calcium [Lipitor 40 mg Tablet] 40 mg PO QHS 30 Days #30 tablet Amlodipine Besylate [Norvasc 5 mg Tablet] 5 mg PO Q12 30 Days #30 tablet Famotidine [Pepcid 20 mg Tablet] 20 mg PO Q12 60 Days #30 tablet Lisinopril [Prinivil 10 mg Tablet] 5 mg PO Q12 60 Days #30 tablet Home Medications: Amlodipine Besylate [Norvasc 5 mg Tablet] 5 mg PO Q12 30 Days #30 tablet 09/21/19 Aspirin [Aspirin 81 mg Chewable Tablet] 81 mg PO DAILY 30 Days #30 tab.chew 09/21/19 Atorvastatin Calcium [Lipitor 40 mg Tablet] 40 mg PO QHS 30 Days #30 tablet 09/21/19 Carvedilol [Coreg 12.5 mg Tablet] 12.5 mg PO Q12 30 Days #60 tablet 09/21/19 Clonidine [Catapres-Tts 3 (0.3 mg/24 Hr) Transderm Patch] 1 each TD Mo@10 28 Days #4 patch.tdwk 09/21/19 Famotidine [Pepcid 20 mg Tablet] 20 mg PO Q12 60 Days #30 tablet 09/21/19 Insulin Glargine,Hum.rec.anlog [Lantus Insulin 100 Unit/1 ml 10 ml] 25 unit SUBCUT Q12 30 Days #2 vial 09/21/19 Insulin Lispro [Humalog Insulin (Lispro) 100 unit/mL] 0 - 12 unit SUBCUT ACHS 30 Days #1 vial 09/21/19 Lisinopril [Prinivil 10 mg Tablet] 5 mg PO Q12 60 Days #30 tablet 09/21/19 Nitroglycerin [Nitrol 2% Ointment 1Gm Packet] 1 gm TP Q6 #0 oint..gm. 09/21/19 History of Present Illiness History of Present Illness: TD COTTO is a 44 year old male TD COTTO is a 44 year old male past medical history of uncontrolled hypertension, obesity, presenting to ED complaining of one month of not feeling, blurry vision, polyuria, polydipsia and weight gain. 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 Patient is a current smoker, denies any personal history of CAD however his mom had a heart attack at the age of 57. Hospital Course Hospital Course: TD COTTO is a 44 year old male past medical history of uncontrolled hypertension, obesity, presenting to ED complaining of one month of not feeling, blurry vision, polyuria, polydipsia and weight gain. 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 Patient is a current smoker, denies any personal history of CAD however his mom had a heart attack at the age of 57. 09/[id number]-[id number]-old man with history of uncontrolled hypertension, obesity came to the emergency room with complaints of blurry vision polyuria polydipsia and weight gain. Hemoglobin A1c came back at 11.9. Presently is on Coreg 25 mg twice a day, amlodipine 5 mg twice a day, lisinopril 20 mg twice a day, IV hydralazine on as needed basis. Urine drug screen positive for cocaine. Most likely uncontrolled blood pressure secondary to cocaine use. Compliance of headaches this morning. 09/21/2019-patient is comfortably in the bed communicating well. Not in distress. Blood pressures are improved latest blood pressure is 140/90. Patient agreed to go home today and follow-up with community [facility]. Physical Exam Vital Signs: Temp Pulse Resp BP Pulse Ox 97.8 F 70 14 130/110 H 97 09/21/19 10:11 09/21/19 10:11 09/21/19 10:11 09/21/19 10:11 09/21/19 10:11 Intake & Output 09/20/19 09/21/19 09/22/19 06:59 06:59 06:59 Intake Total 2119 1460 Balance 2119 1460 Weight 86.7 kg 86.7 kg General appearance: PRESENT: no acute distress, obese Head exam: PRESENT: atraumatic Eye exam: PRESENT: PERRLA Mouth exam: PRESENT: moist, tongue midline Teeth exam: PRESENT: poor dentation Neck exam: ABSENT: carotid bruit, JVD, lymphadenopathy, thyromegaly Respiratory exam: PRESENT: decreased breath sounds Cardiovascular exam: PRESENT: RRR. ABSENT: diastolic murmur, rubs, systolic murmur GI/Abdominal exam: PRESENT: normal bowel sounds, soft. ABSENT: distended, guarding, mass, organolmegaly, rebound, tenderness Rectal exam: PRESENT: deferred Extremities exam: PRESENT: full ROM. ABSENT: calf tenderness, clubbing, pedal edema Neurological exam: PRESENT: alert, awake, oriented to person, oriented to place, oriented to time, oriented to situation, CN II-XII grossly intact. ABSENT: motor sensory deficit Psychiatric exam: PRESENT: appropriate affect, normal mood. ABSENT: homicidal ideation, suicidal ideation Results Laboratory Results: WBC 6.4 10^3/uL (4.0-10.5) 09/21/19 04:17 RBC 4.73 10^6/uL (4.35-5.55) 09/21/19 04:17 Hgb 13.7 g/dL (13.5-17.0) 09/21/19 04:17 Hct 41.1 % (37.9-51.0) 09/21/19 04:17 MCV 87 fl (80-97) 09/21/19 04:17 MCH 29.0 pg (27.0-33.4) 09/21/19 04:17 MCHC 33.4 g/dL (32.0-36.0) 09/21/19 04:17 RDW 13.2 % (11.5-14.0) 09/21/19 04:17 Plt Count 189 10^3/uL (150-450) 09/21/19 04:17 Lymph % (Auto) 22.8 % (13-45) 09/21/19 04:17 [place] % (Auto) 7.9 % (3-13) 09/21/19 04:17 Eos % (Auto) 3.2 % (0-6) 09/21/19 04:17 Baso % (Auto) 0.6 % (0-2) 09/21/19 04:17 Absolute Neuts (auto) 4.2 10^3/uL (1.7-8.2) 09/21/19 04:17 Absolute Lymphs (auto) 1.5 10^3/uL (0.5-4.7) 09/21/19 04:17 Absolute Monos (auto) 0.5 10^3/uL (0.1-1.4) 09/21/19 04:17 Absolute Eos (auto) 0.2 10^3/uL (0.0-0.6) 09/21/19 04:17 Absolute Basos (auto) 0.0 10^3/uL (0.0-0.2) 09/21/19 04:17 Seg Neutrophils % 65.5 % (42-78) 09/21/19 04:17 VBG pH 7.35 (7.30-7.42) 09/19/19 16:36 VBG pCO2 50.8 mmHg (35-63) 09/19/19 16:36 VBG HCO3 27.4 mmol/L (20-32) 09/19/19 16:36 VBG Base Excess 0.8 mmol/L 09/19/19 16:36 Sodium 133.7 mmol/L (137-145) L 09/21/19 04:17 Potassium 3.7 mmol/L (3.6-5.0) 09/21/19 04:17 Chloride 103 mmol/L (98-107) 09/21/19 04:17 Carbon Dioxide 24 mmol/L (22-30) 09/21/19 04:17 Anion Gap 7 (5-19) 09/21/19 04:17 BUN 20 mg/dL (7-20) 09/21/19 04:17 Creatinine 1.12 mg/dL (0.52-1.25) 09/21/19 04:17 Est GFR ( Amer) > 60 (>60) 09/21/19 04:17 Est GFR (MDRD) Non-Af > 60 (>60) 09/21/19 04:17 Glucose 185 mg/dL (75-110) H 09/21/19 04:17 POC Glucose 128 mg/dL (70-110) H 09/21/19 07:45 Hemoglobin A1c % 11.9 % (4.7-6.0) H 09/19/19 12:40 Calcium 9.1 mg/dL (8.4-10.2) 09/21/19 04:17 Magnesium 1.9 mg/dL (1.6-2.3) 09/20/19 07:25 Total Bilirubin 0.9 mg/dL (0.2-1.3) 09/21/19 04:17 Direct Bilirubin 0.0 mg/dL (0.0-0.4) 09/21/19 04:17 Neonat Total Bilirubin Not Reportable 09/21/19 04:17 Neonat Direct Bilirubin Not Reportable 09/21/19 04:17 Neonat Indirect Bili Not Reportable 09/21/19 04:17 AST 37 U/L (17-59) 09/21/19 04:17 ALT 63 U/L (<50) H 09/21/19 04:17 Alkaline Phosphatase 100 U/L (38-126) 09/21/19 04:17 Troponin I 0.033 ng/mL 09/20/19 00:56 NT-Pro-B Natriuret Pep 75 pg/mL (<125) 09/19/19 17:51 Total Protein 5.9 g/dL (6.3-8.2) L 09/21/19 04:17 Albumin 3.5 g/dL (3.5-5.0) 09/21/19 04:17 Triglycerides 298 mg/dL (<150) H 09/19/19 12:40 Cholesterol 131.44 mg/dL (0-200) 09/19/19 12:40 LDL Cholesterol Direct 78 mg/dL (<100) 09/19/19 12:40 VLDL Cholesterol 59.6 mg/dL (10-31) H 09/19/19 12:40 HDL Cholesterol 31 mg/dL (>40) L 09/19/19 12:40 TSH 0.87 uIU/mL (0.47-4.68) 09/19/19 12:40 Free T4 1.41 ng/dL (0.78-2.19) 09/19/19 12:40 Urine Color STRAW 09/19/19 12:40 Urine Appearance CLEAR 09/19/19 12:40 Urine pH 6.0 (5.0-9.0) 09/19/19 12:40 Ur Specific [place] 1.032 09/19/19 12:40 Urine Protein NEGATIVE mg/dL (NEGATIVE) 09/19/19 12:40 Urine Glucose (UA) >=500 mg/dL (NEGATIVE) H 09/19/19 12:40 Urine Ketones NEGATIVE mg/dL (NEGATIVE) 09/19/19 12:40 Urine Blood NEGATIVE (NEGATIVE) 09/19/19 12:40 Urine Nitrite NEGATIVE (NEGATIVE) 09/19/19 12:40 Urine Bilirubin NEGATIVE (NEGATIVE) 09/19/19 12:40 Urine Urobilinogen NEGATIVE mg/dL (<2.0) 09/19/19 12:40 Ur Leukocyte Esterase NEGATIVE (NEGATIVE) 09/19/19 12:40 Urine WBC (Auto) 0 /HPF 09/19/19 12:40 Urine RBC (Auto) 0 /HPF 09/19/19 12:40 Urine Mucus (Auto) RARE /LPF 09/19/19 12:40 Urine Ascorbic Acid NEGATIVE (NEGATIVE) 09/19/19 12:40 Urine Opiates Screen NEGATIVE 09/19/19 12:40 Urine Methadone Screen NEGATIVE 09/19/19 12:40 Ur Barbiturates Screen NEGATIVE 09/19/19 12:40 Ur Phencyclidine Scrn NEGATIVE 09/19/19 12:40 Ur Amphetamines Screen NEGATIVE 09/19/19 12:40 U Benzodiazepines Scrn NEGATIVE 09/19/19 12:40 Urine Cocaine Screen UNCONFIRMED POSITIVE 09/19/19 12:40 U Marijuana (THC) Screen NEGATIVE 09/19/19 12:40 09/19/19 09/19/19 09/19/19 12:40 17:51 17:51 Troponin I 0.038 Cancelled NT-Pro-B Natriuret Pep 75 09/19/19 09/20/19 19:07 00:56 Troponin I 0.040 0.033 NT-Pro-B Natriuret Pep Plan Plan of Treatment: Patient is advised to follow-up with community care clinic next week. Time Spent: Greater than 30 Minutes Stroke Is this a Stroke Patient?: No Acute Heart Failure - Is this a Heart Failure Patient?: No
== END 2019-09-21 12:52 | disposition home or self-care (01) | DRG 305 ==
LOC: ER 11:53 → EH 17:51 → 3W 23:36
PROVIDERS: ADMIT Internal Medicine; ATTEND Internal Medicine
DX: I16.1 Hypertensive emergency (principal); E11.9 Type 2 diabetes mellitus without complications; F14.10 Cocaine abuse, uncomplicated; T46.5X6A Underdosing of other antihypertensive drugs, initial encounter; Z91.120 Patient's intentional underdosing of medication regimen due to financial hardship; I10 Essential (primary) hypertension; R79.89 Other specified abnormal findings of blood chemistry; E66.9 Obesity, unspecified; Z68.39 Body mass index [BMI] 39.0-39.9, adult; F17.200 Nicotine dependence, unspecified, uncomplicated; Z71.51 Drug abuse counseling and surveillance of drug abuser; Z82.49 Family history of ischemic heart disease and other diseases of the circulatory system; Z83.3 Family history of diabetes mellitus; Z88.5 Allergy status to narcotic agent; Z59.7 Insufficient social insurance and welfare support; F12.10 Cannabis abuse, uncomplicated
CPT/HCPCS: 36415; 80053; 80061; 80307; 81001; 82803; 82962; 83036; 83735; 83880; 84439; 84443; 84484; 85025; 93005; 93010; 94640; 96360; 96361; 99285; J0360; J1650; J1815; J3490; J7030